=== PATIENT | male | born 2000 | race Caucasian/White ===

== ENCOUNTER 2021-05-01 14:19 | Inpatient (IN) | payer BC ==
[2021-05-01] MEDS ORDERED: Acetaminophen 325 MG Tab PO PRN (14:51)
[2021-05-01] MEDS ORDERED: Ondansetron 4 MG/2 ML SDV IVPUSH PRN (14:51)
--- NOTE | 2021-05-01 14:59 | PCM.SN.2 ---
- Free Text/Narrative Note: ABG results from [place]: pH 7.43, CO2 40, PO2 76 Time Documentation
[2021-05-01] MEDS ORDERED: Dexamethasone 4 MG Tab PO SCH (15:00)
[2021-05-01] MEDS ORDERED: Pantoprazole 40 MG Vial IV SCH (15:00)
[2021-05-01] MEDS ORDERED: Enoxaparin 40 MG/0.4 ML Syringe SUBCUT SCH (15:00)
[2021-05-01] MEDS ORDERED: Pantoprazole 40 MG in Sodium Chloride 0.9% 10 ML IV SCH (15:15)
[2021-05-01] MEDS: Albuterol/Ipratropium 4 GM Inhalation Spray INH SCH ×3 (17:19→23:37)
--- NOTE | 2021-05-01 17:39 | PCM.HP.2 ---
<AurelioFransiscolesley - Last Filed: 05/01/21 19:11> H&P History of Present Illness - General Date of Service: 05/01/21 Admit Problem/Dx: Admission Diagnosis/Problem Admission Diagnosis/Problem Hypoxia - History of Present Illness Initial Comments - Free Text/Narative: 21-year-old was a direct transfer from [facility] to the ICU for worsening Covid pneumonia. Patient was diagnosed with Covid 2 weeks ago in [place]. Patient was continued to experience fatigue, increased shortness of breath was parents drove him to [place] where he was seen in the ER and CT of his chest was done which showed: Pneumonia but no pulmonary embolism, as per patient. Patient returned to [place] and experienced increasing shortness of breath. 911 was called and he was taking to [facility]. Patient received his first dose of remdesivir. Patient refused outpatient antibody therapy. Patient transferred to [facility] ICU. Patient has experienced fever, chills, diarrhea but denies changes in taste or smell. Patient denies calf pain. Patient has had a cough but no mucus production. Patient is not vaccinated for Covid. Patient is on high flow nasal cannula, 60 L/min, FiO2 87%. Saturating at 93%. As per [place] medical record, WBC 9.74. Hgb 13.9. Platelet 159. D-dimer 14.8. Sodium 137. Potassium 3.9. Chloride 102. Bicarb 26. BUN 15. Creatinine 0.8. Glucose 109. Calcium 8.4. Phosphorus 4.6. Magnesium 2.4. AST 58. ALT 67. Alk phos 60. Troponin negative. C-reactive protein 18. SARS-CoV-2 positive. ABG pH 7.43. PCO2 40. PO2 76. HCO3 26. CT angiography done yesterday was negative. Past medical history: Patient denies past medical history. Medications: Patient states he is currently not on any medications. 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 Social history: Patient denies smoking. CODE STATUS: Full code. - Related Data Allergies/Adverse Reactions: Allergies Allergy/AdvReac Type Severity Reaction Status Date / Time cashew nut Allergy Airway Verified 04/25/21 03:55 MDT Tightness Home Medications: Home Meds . [No Known Home Meds] 05/01/21 [History] Past Medical History - Past Health History Medical/Surgical History: Denies Medical/Surgical History HEENT History: Reports: Impaired Vision Other HEENT History: glasses Cardiovascular History: Reports: None Respiratory History: Reports: None Gastrointestinal History: Reports: None Genitourinary History: Reports: None Other Musculoskeletal History: right leg shorter than left since Neurological History: Reports: None Psychiatric History: Reports: None Endocrine/Metabolic History: Reports: None Hematologic History: Reports: None Immunologic History: Reports: None Oncologic (Cancer) History: Reports: None Dermatologic History: Reports: None - Infectious Disease History Infectious Disease History: Reports: Novel Coronavirus - Past Surgical History Head Surgeries/Procedures: Reports: None Respiratory Surgical History: Reports: None GI Surgical History: Reports: None Social & Family History - Caffeine Use Caffeine Use: Reports: Soda Caffeine Use Comment: 2 per day soda H&P Review of Systems - Review of Systems: Review Of Systems: See Below General: Reports: Fever. Denies: Chills HEENT: Denies: Headaches Pulmonary: Reports: Shortness of Breath, Cough. Denies: Pleuritic Chest Pain, Sputum Cardiovascular: Reports: Dyspnea on Exertion. Denies: Chest Pain, Palpitations, Edema Gastrointestinal: Reports: Diarrhea, Decreased Appetite. Denies: Abdominal Pain, Bloody Stool, Constipation, Hematochezia, Melena Genitourinary: Denies: Dysuria Musculoskeletal: Denies: Leg Pain, Joint Pain Skin: Denies: Cyanosis, Rash Psychiatric: Denies: Confusion, Depression Neurological: Denies: Dizziness, Headache, Numbness, Paresthesia Hematologic/Lymphatic: Denies: Easy Bleeding, Easy Bruising Exam - Exam Exam: See Below - Exam Quality Assessment: Supplemental Oxygen General: Alert, Oriented, Cooperative, Moderate Distress. No: Lethargic HEENT: Conjunctiva Clear, EACs Clear, EOMI Neck: Supple, Trachea Midline Lungs: Decreased Breath Sounds, Crackles. No: Wheezing Cardiovascular: Regular Rate, Regular Rhythm GI/Abdominal Exam: Normal Bowel Sounds, Soft, Non-Tender Back Exam: Normal Inspection. No: CVA Tenderness (L), CVA Tenderness (R) Extremities: Normal Inspection. No: No Pedal Edema, Val's Sign, Leg Pain Peripheral Pulses: 2+: Dorsalis Pedis (L), Dorsalis Pedis (R) Skin: Warm, Dry, Intact Neurological: Cranial Nerves Intact Neuro Extensive - Mental Status: Alert, Oriented x3, Normal Mood/Affect - Problem List (1) COVID SNOMED Code(s): 413425512 ICD Code: U07.1 - COVID-19 Status: Acute Current Visit: No (2) Pneumonia due to COVID-19 virus SNOMED Code(s): 861336263487521554 ICD Code: U07.1 - COVID-19; J12.82 - PNEUMONIA DUE TO CORONAVIRUS DISEASE 2019 Status: Acute Current Visit: No Problem List Initiated/Reviewed/Updated: Yes Orders Last 24hrs: Active Orders 24 hr Category Date Time Status Patient Status [ADT] Routine ADT 05/01/21 14:51 Active Ambulate [RC] ASDIRECTED Care 05/01/21 14:51 Active Antiembolic Devices [RC] PER UNIT ROUTINE Care 05/01/21 14:54 Active Oxygen Therapy [RC] PRN Care 05/01/21 14:51 Active RT Aerosol Therapy [RC] ASDIRECTED Care 05/01/21 14:54 Active RT Post Treatment Assessment [RC] Click to Edit Care 05/01/21 14:57 Active RT Pre-Treatment Assessment [RC] Click to Edit Care 05/01/21 14:57 Active VTE/DVT Education [RC] PER UNIT ROUTINE Care 05/01/21 14:51 Active Vital Signs [RC] Q4H Care 05/01/21 14:51 Active Regular Diet [DIET] Diet 05/01/21 Dinner Active CBC WITH AUTO DIFF [HEME] Routine Lab 05/01/21 16:00 Ordered COMPREHENSIVE METABOLIC PN,CMP [CHEM] Routine Lab 05/01/21 16:00 Ordered CRP [C-REACTIVE PROTEIN] [CHEM] Routine Lab 05/01/21 16:00 Ordered MAGNESIUM [CHEM] Routine Lab 05/01/21 16:00 Ordered PHOSPHORUS [CHEM] Routine Lab 05/01/21 16:00 Ordered Acetaminophen [TylenoL] Med 05/01/21 14:51 Active 650 mg PO Q4H PRN Albuterol/Ipratropium [Combivent Respimat] Med 05/01/21 15:00 Active See Dose Instructions INH Q4H Albuterol/Ipratropium [DuoNeb 3.0-0.5 MG/3 ML] Med 05/01/21 14:51 Active 3 ml NEB Q4HRRT PRN Enoxaparin [Lovenox] Med 05/01/21 15:00 Active 40 mg SUBCUT Q24H Ondansetron [Zofran] Med 05/01/21 14:51 Active 4 mg IVPUSH Q4H PRN Pantoprazole [ProTONIX IV] 40 mg Med 05/01/21 15:15 Active Sodium Chloride 0.9% [Normal Saline] 10 ml IV DAILY Remdesivir 100 mg Med 05/01/21 15:00 Ordered Sodium Chloride 0.9% [Normal Saline] 100 ml IV Q24H dexAMETHasone Med 05/01/21 15:00 Active 6 mg PO DAILY RT Oxygen High Humidity High Flow [RESPCARE] Routine Oth 05/01/21 14:57 Active Sequential Compression Device [OM.PC] Per Unit Routine Oth 05/01/21 14:53 Ordered Resuscitation Status Routine Resus Stat 05/01/21 14:51 Ordered Medication Orders Acetaminophen (Acetaminophen 325 Mg Tab) 650 mg PO Q4H PRN PRN Reason: Pain (Mild 1-3)/fever Albuterol/Ipratropium (Albuterol/Ipratropium 3.0-0.5 Mg/3 Ml Neb Soln) 3 ml NEB Q4HRRT PRN PRN Reason: Shortness Of Breath/wheezing Albuterol/Ipratropium (Albuterol/Ipratropium 4 Gm Inhalation [place]) 0 gm INH Q4H RAHEL Last Admin: 05/01/21 17:19 Dose: Not Given Documented by: LIEN Dexamethasone (Dexamethasone 4 Mg Tab) 6 mg PO DAILY [facility] Enoxaparin Sodium (Enoxaparin 40 Mg/0.4 Ml Syringe) 40 mg SUBCUT Q24H [facility] Remdesivir 100 mg/ Sodium (Chloride) 100 mls @ 100 mls/hr IV Q24H RAHEL Stop: 05/04/21 15:59 Pantoprazole Sodium 40 mg/ (Sodium Chloride) 10 mls @ 300 mls/hr IV DAILY [facility] Ondansetron HCl (Ondansetron 4 Mg/2 Ml Sdv) 4 mg IVPUSH Q4H PRN PRN Reason: Nausea/Vomiting Assessment/Plan Comment:: COVID-19 pneumonia: Acetaminophen 650 mg. Duo nebs. Combivent. Dexamethasone 6 mg daily. Zofran 4 mg. Pantoprazole 40 mg. Remdesivir. Oxygen therapy. Patient has been on heparin drip for 2 hours. Discontinue heparin drip. We wi ll anticoagulate patient with Lovenox starting 3 hours after drip was discontinued. 0.5 mg/kg twice daily. <Pritesh Hyatt - Last Filed: 05/01/21 23:20> H&P History of Present Illness - General Admit Problem/Dx: Admission Diagnosis/Problem Admission Diagnosis/Problem Hypoxia Exam - Vital Signs Vital Signs: Last Vital Signs Temp 36.5 C 05/01/21 19:00 Pulse Resp 26 H 05/01/21 22:00 BP 123/56 L 05/01/21 21:00 Pulse Ox 91 L 05/01/21 22:00 Sepsis Event Note - Focused Exam Vital Signs: Vital Signs Temp Resp BP Pulse Ox 05/01/21 22:00 26 H 91 L 05/01/21 21:00 28 H 123/56 L 90 L 05/01/21 20:00 29 H 118/57 L 91 L 05/01/21 19:00 36.5 C 20 114/57 L 93 L Orders Last 24hrs: Active Orders 24 hr Category Date Time Status Patient Status [ADT] Routine ADT 05/01/21 14:51 Active Ambulate [RC] ASDIRECTED Care 05/01/21 14:51 Active Antiembolic Devices [RC] PER UNIT ROUTINE Care 05/01/21 14:54 Active Oxygen Therapy [RC] PRN Care 05/01/21 14:51 Active RT Aerosol Therapy [RC] ASDIRECTED Care 05/01/21 14:54 Active RT Post Treatment Assessment [RC] Click to Edit Care 05/01/21 14:57 Active RT Pre-Treatment Assessment [RC] Click to Edit Care 05/01/21 14:57 Active VTE/DVT Education [RC] PER UNIT ROUTINE Care 05/01/21 14:51 Active Vital Signs [RC] Q1H Care 05/01/21 14:51 Active Regular Diet [DIET] Diet 05/01/21 Dinner Active CBC WITH AUTO DIFF [HEME] DAILY Lab 05/02/21 05:11 Ordered CBC WITH AUTO DIFF [HEME] DAILY Lab 05/03/21 05:11 Ordered CBC WITH AUTO DIFF [HEME] DAILY Lab 05/04/21 05:11 Ordered CBC WITH AUTO DIFF [HEME] DAILY Lab 05/05/21 05:11 Ordered CBC WITH AUTO DIFF [HEME] DAILY Lab 05/06/21 05:11 Ordered CBC WITH AUTO DIFF [HEME] DAILY Lab 05/07/21 05:11 Ordered CBC WITH AUTO DIFF [HEME] DAILY Lab 05/08/21 05:11 Ordered CBC WITH AUTO DIFF [HEME] DAILY Lab 05/09/21 05:11 Ordered CBC WITH AUTO DIFF [HEME] DAILY Lab 05/10/21 05:11 Ordered CBC WITH AUTO DIFF [HEME] DAILY Lab 05/11/21 05:11 Ordered COMPREHENSIVE METABOLIC PN,CMP [CHEM] DAILY Lab 05/02/21 05:11 Ordered COMPREHENSIVE METABOLIC PN,CMP [CHEM] DAILY Lab 05/03/21 05:11 Ordered COMPREHENSIVE METABOLIC PN,CMP [CHEM] DAILY Lab 05/04/21 05:11 Ordered COMPREHENSIVE METABOLIC PN,CMP [CHEM] DAILY Lab 05/05/21 05:11 Ordered COMPREHENSIVE METABOLIC PN,CMP [CHEM] DAILY Lab 05/06/21 05:11 Ordered COMPREHENSIVE METABOLIC PN,CMP [CHEM] DAILY Lab 05/07/21 05:11 Ordered COMPREHENSIVE METABOLIC PN,CMP [CHEM] DAILY Lab 05/08/21 05:11 Ordered COMPREHENSIVE METABOLIC PN,CMP [CHEM] DAILY Lab 05/09/21 05:11 Ordered COMPREHENSIVE METABOLIC PN,CMP [CHEM] DAILY Lab 05/10/21 05:11 Ordered COMPREHENSIVE METABOLIC PN,CMP [CHEM] DAILY Lab 05/11/21 05:11 Ordered PROCALCITONIN [REF] Routine Lab 05/02/21 05:15 Ordered Acetaminophen [TylenoL] Med 05/01/21 14:51 Active 650 mg PO Q4H PRN Albuterol/Ipratropium [Combivent Respimat] Med 05/01/21 15:00 Active See Dose Instructions INH Q4H Albuterol/Ipratropium [DuoNeb 3.0-0.5 MG/3 ML] Med 05/01/21 14:51 Active 3 ml NEB Q4HRRT PRN Enoxaparin [Lovenox] Med 05/01/21 22:00 Active 70 mg SUBCUT Q12H Ondansetron [Zofran] Med 05/01/21 14:51 Active 4 mg IVPUSH Q4H PRN Pantoprazole [ProTONIX IV] 40 mg Med 05/01/21 15:15 Active Sodium Chloride 0.9% [Normal Saline] 10 ml IV DAILY Remdesivir 100 mg Med 05/02/21 09:00 Active Sodium Chloride 0.9% [Normal Saline] 100 ml IV Q24H dexAMETHasone Med 05/02/21 09:00 Active 6 mg PO DAILY RT Oxygen High Humidity High Flow [RESPCARE] Routine Oth 05/01/21 14:57 Active Sequential Compression Device [OM.PC] Per Unit Routine Oth 05/01/21 14:53 Ordered Resuscitation Status Routine Resus Stat 05/01/21 14:51 Ordered Medication Orders Acetaminophen (Acetaminophen 325 Mg Tab) 650 mg PO Q4H PRN PRN Reason: Pain (Mild 1-3)/fever Albuterol/Ipratropium (Albuterol/Ipratropium 3.0-0.5 Mg/3 Ml Neb Soln) 3 ml NEB Q4HRRT PRN PRN Reason: Shortness Of Breath/wheezing Albuterol/Ipratropium (Albuterol/Ipratropium 4 Gm Inhalation [place]) 0 gm INH Q4H [facility] Last Admin: 05/01/21 19:52 Dose: 1 puff Documented by: Admin: 05/01/21 17:19 Dose: Not Given Documented by: LIEN Dexamethasone (Dexamethasone 4 Mg Tab) 6 mg PO DAILY [facility] Enoxaparin Sodium (Enoxaparin 100 Mg/1 Ml Syringe) 70 mg SUBCUT Q12H [facility] Last Admin: 05/01/21 22:17 Dose: 70 mg Documented by: AJAY Remdesivir 100 mg/ Sodium (Chloride) 100 mls @ 100 mls/hr IV Q24H [facility] Stop: 05/04/21 09:59 Pantoprazole Sodium 40 mg/ (Sodium Chloride) 10 mls @ 300 mls/hr IV DAILY [facility] Last Admin: 05/01/21 19:54 Dose: Not Given Documented by: AJAY Ondansetron HCl (Ondansetron 4 Mg/2 Ml Sdv) 4 mg IVPUSH Q4H PRN PRN Reason: Nausea/Vomiting Assessment/Plan Comment:: I performed a history and physical exam of the patient and discussed management with resident. I have reviewed the residents note and agree with documented findings and plan unless otherwise specified in my note.
[2021-05-01] MEDS ORDERED: Tocilizumab 800 MG in Sodium Chloride 0.9% 100 ML IV ONE (19:31)
[2021-05-01] MEDS: Pantoprazole 40 MG in Sodium Chloride 0.9% 10 ML IV SCH (19:54)
--- NOTE | 2021-05-01 20:14 | PN ---
[facility] Physician - Brief Progress [id number]/19/2021 19:53[place] - CHANDRA (OLEGARIO) - DESTINN JACQUES KNAPP, COVID+Date of Service 05/01/2021 19:53HPI /Events of Note HPI: 21 yo obese M with no known PMHx was sent to [facility] ICU from hospital in [place], [place] for worsening hypoxia secondary to COVID19 pneumonia. Pt was diagnosed with COVID19 2 w eeks ago. He has since experienced progressively worsening fatigue and dyspnea. He has had associated fever, chills, diarrhea, and dry cough. He recently went to ER in [place] and had a CT chest that w as negative for PE. Today, dyspnea was severe enough that EMS was called and pt was taken to ER [place]. He has declined monoclonal antibody. Remdesivir has been started. He is now requiring heated high flow NC with flow 60 L/min and FiO2 87%. SpO2 is 93% on these settings.OBJECTIVE:Vitals not maribell rted in EMR. Reviewed vitals on library monitor.Gen: Pleasant, comfortable, cooperative, NAD, obese Heart: NSR with normal HR on telemetryLungs: Mild tachypnea at rest on heated high flow with spo2 93% Neuro: Awake, alert, moves all 4 limbs spontaneously, NADASSESSMENT:Acute hypoxic respiratory failure Multifocal pneumonia d/t [id number] via heated HFNC, wean as toleratedMaintain spo2 >90% and p o2 >60 mmHgDroplet isolation per protocolDexamethasoneRemdesivirPt refused monoclonal antibodies F/U chest imaging and ABG at discretion of bedside teamInterventions Major-Hypoxemia - evaluation and man agement, Infection - evaluation and management, Respiratory failure - evaluation and managementElectr onically Signed by: Jitendra Plunkett) on 05/01/2021 20:13
[2021-05-01] MEDS: Enoxaparin 100 MG/1 ML Syringe SUBCUT SCH (22:17)
[2021-05-02] MEDS: Albuterol/Ipratropium 4 GM Inhalation Spray INH SCH ×6 (02:35→22:05)
[2021-05-02 07:20] LABS: BLOOD UREA NITROGEN,BUN 13 mg/dL (7.0-18.0); CARBON DIOXIDE,CO2 26.3 mmol/L (21.0-32.0); CHLORIDE,CL 103 mmol/L (98-107); GLUCOSE RANDOM 97 mg/dL (74-106); POTASSIUM,K 4.8 mmol/L (3.5-5.1); SODIUM,NA 141 mmol/L (136-148)
--- NOTE | 2021-05-02 08:03 | PCM.PN ---
<Lemuel Carey - Last Filed: 05/02/21 11:08> - General Info Date of Service: 05/02/21 Admission Dx/Problem (Free Text): Admission Diagnosis/Problem Admission Diagnosis/Problem Hypoxia Subjective Update: 21-year-old obese male transferred from [place], admitted to ICU for worsening Covid pneumonia. After consent was obtained, patient received Actemra last night. Patient continues to have watery diarrhea overnight. This morning he states he feels the best he has in 2 days. Patient is now down to 50 L from 60 L, which was weaned down at 5 AM. Patient is saturating 90 to 94%. Patient states he slept well last night. Patient is hungry and would like breakfast. Patient denies fever, chills, chest pain, palpitations, dizziness, abdominal pain or dysuria. - Review of Systems General: Reports: Fatigue. Denies: Fever, Chills HEENT: Denies: Headaches Pulmonary: Reports: Shortness of Breath. Denies: Pleuritic Chest Pain, Cough, Sputum Cardiovascular: Denies: Chest Pain, Palpitations Gastrointestinal: Reports: Diarrhea. Denies: Abdominal Pain, Constipation Genitourinary: Denies: Dysuria Musculoskeletal: Denies: Leg Pain Skin: Denies: Rash Neurological: Denies: Confusion, Dizziness, Numbness, Paresthesia - Patient Data Vitals - Most Recent: Last Vital Signs Temp 98.9 F 05/02/21 05:00 Pulse Resp 12 05/02/21 07:00 BP 121/64 05/02/21 07:00 Pulse Ox 95 05/02/21 07:00 Weight - Most Recent: 119.068 kg I&O - Last 24 Hours: Intake & Output 05/01/21 05/02/21 05/02/21 22:59 06:59 14:59 Intake Total 1000 Balance 1000 Lab Results Last 24 Hours: Laboratory Results - last 24 hr 05/02/21 Range/Units 06:01 Sodium 141 (136-148) mmol/L Potassium 4.8 (3.5-5.1) mmol/L Chloride 103 (98-107) mmol/L Carbon Dioxide 26.3 (21.0-32.0) mmol/L BUN 13 (7.0-18.0) mg/dL Creatinine 0.6 L (0.8-1.3) mg/dL Est Cr Clr Drug Dosing 179.02 mL/min Estimated GFR (MDRD) > 60.0 ml/min Glucose 97 (74-106) mg/dL Calcium 8.1 L (8.5-10.1) mg/dL Total Bilirubin 0.5 (0.2-1.0) mg/dL AST 61 H (15-37) IU/L ALT 56 (14-63) IU/L Alkaline Phosphatase 65 (46-116) U/L Total Protein 6.9 (6.4-8.2) g/dL Albumin 2.3 L (3.4-5.0) g/dL Globulin 4.6 H (2.6-4.0) g/dL Albumin/Globulin Ratio 0.5 L (0.9-1.6) Med Orders - Current: Current Medications Acetaminophen (Acetaminophen 325 Mg Tab) 650 mg PO Q4H PRN PRN Reason: Pain (Mild 1-3)/fever Albuterol/Ipratropium (Albuterol/Ipratropium 3.0-0.5 Mg/3 Ml Neb Soln) 3 ml NEB Q4HRRT PRN PRN Reason: Shortness Of Breath/wheezing Albuterol/Ipratropium (Albuterol/Ipratropium 4 Gm Inhalation [place]) 0 gm INH Q4H [facility] Last Admin: 05/02/21 06:03 Dose: 1 puff Documented by: Dexamethasone (Dexamethasone 4 Mg Tab) 6 mg PO DAILY [facility] Enoxaparin Sodium (Enoxaparin 100 Mg/1 Ml Syringe) 70 mg SUBCUT Q12H [facility] Last Admin: 05/01/21 22:17 Dose: 70 mg Documented by: Remdesivir 100 mg/ Sodium (Chloride) 100 mls @ 100 mls/hr IV Q24H [facility] Stop: 05/04/21 09:59 Pantoprazole Sodium 40 mg/ (Sodium Chloride) 10 mls @ 300 mls/hr IV DAILY [facility] Last Admin: 05/01/21 19:54 Dose: Not Given Documented by: Ondansetron HCl (Ondansetron 4 Mg/2 Ml Sdv) 4 mg IVPUSH Q4H PRN PRN Reason: Nausea/Vomiting Discontinued Medications Dexamethasone (Dexamethasone 4 Mg Tab) 6 mg PO DAILY [facility] Last Admin: 05/01/21 18:23 Dose: Not Given Documented by: Enoxaparin Sodium (Enoxaparin 40 Mg/0.4 Ml Syringe) 40 mg SUBCUT Q24H [facility] Last Admin: 05/01/21 18:29 Dose: Not Given Documented by: Pantoprazole Sodium 40 mg/ (Sodium Chloride) 10 mls @ 300 mls/hr IV Q24H [facility] Tocilizumab 800 mg/ Sodium (Chloride) 140 mls @ 140 mls/hr IV ONETIME ONE Stop: 05/01/21 19:32 Last Admin: 05/01/21 20:19 Dose: 140 mls/hr Documented by: - Exam Quality Assessment: Supplemental Oxygen General: Alert, Oriented, Cooperative, No Acute Distress HEENT: Pupils Equal, Pupils Reactive Neck: Supple, Trachea Midline Lungs: Decreased Breath Sounds, Crackles Cardiovascular: Regular Rate, Regular Rhythm, No Murmurs GI/Abdominal Exam: Normal Bowel Sounds, Soft, Non-Tender. No: Rebound Back Exam: Normal Inspection. No: CVA Tenderness (L), CVA Tenderness (R) Extremities: Normal Inspection, Normal Range of Motion, Non-Tender, No Pedal Edema. No: Val's Sign, Leg Pain Peripheral Pulses: 2+: Dorsalis Pedis (L), Dorsalis Pedis (R) Skin: Warm, Dry, Intact Neurological: No New Focal Deficit - Patient Data Lab Results Last 24 hrs: Laboratory Results - last 24 hr 05/02/21 Range/Units 06:01 Sodium 141 (136-148) mmol/L Potassium 4.8 (3.5-5.1) mmol/L Chloride 103 (98-107) mmol/L Carbon Dioxide 26.3 (21.0-32.0) mmol/L BUN 13 (7.0-18.0) mg/dL Creatinine 0.6 L (0.8-1.3) mg/dL Est Cr Clr Drug Dosing 179.02 mL/min Estimated GFR (MDRD) > 60.0 ml/min Glucose 97 (74-106) mg/dL Calcium 8.1 L (8.5-10.1) mg/dL Total Bilirubin 0.5 (0.2-1.0) mg/dL AST 61 H (15-37) IU/L ALT 56 (14-63) IU/L Alkaline Phosphatase 65 (46-116) U/L Total Protein 6.9 (6.4-8.2) g/dL Albumin 2.3 L (3.4-5.0) g/dL Globulin 4.6 H (2.6-4.0) g/dL Albumin/Globulin Ratio 0.5 L (0.9-1.6) Result Diagrams: 05/02/21 06:01 05/02/21 06:01 Sepsis Event Note - Evaluation Sepsis Screening Result: No Definite Risk - Focused Exam Vital Signs: Vital Signs Temp Resp BP Pulse Ox 05/02/21 07:00 12 121/64 95 05/02/21 06:00 15 135/71 92 L 05/02/21 05:00 98.9 F 34 H 140/78 93 L 05/02/21 04:00 18 125/66 96 05/02/21 03:00 31 H 119/59 L 96 05/02/21 02:00 41 H 125/49 L 95 05/02/21 01:00 29 H 125/40 L 95 05/02/21 00:00 99.1 F 29 H 136/70 93 L 05/01/21 23:00 35 H 111/54 L 93 L 05/01/21 22:00 26 H 109/46 L 91 L 05/01/21 21:00 28 H 123/56 L 90 L 05/01/21 20:00 29 H 118/57 L 91 L - Problem List & Annotations (1) COVID SNOMED Code(s): 475959252 Code(s): U07.1 - COVID-19 Status: Acute Current Visit: No (2) Pneumonia due to COVID-19 virus SNOMED Code(s): 847262714580465744 Code(s): U07.1 - COVID-19; J12.82 - PNEUMONIA DUE TO CORONAVIRUS DISEASE 2019 Status: Acute Current Visit: No - Problem List Review Problem List Initiated/Reviewed/Updated: Yes - My Orders Last 24 Hours: My Active Orders 05/01/21 22:00 Enoxaparin [Lovenox] 70 mg SUBCUT Q12H 05/02/21 06:01 CBC WITH AUTO DIFF [HEME] DAILY 05/03/21 05:11 CBC WITH AUTO DIFF [HEME] DAILY COMPREHENSIVE METABOLIC PN,CMP [CHEM] DAILY 05/04/21 05:11 CBC WITH AUTO DIFF [HEME] DAILY COMPREHENSIVE METABOLIC PN,CMP [CHEM] DAILY 05/05/21 05:11 CBC WITH AUTO DIFF [HEME] DAILY COMPREHENSIVE METABOLIC PN,CMP [CHEM] DAILY 05/06/21 05:11 CBC WITH AUTO DIFF [HEME] DAILY COMPREHENSIVE METABOLIC PN,CMP [CHEM] DAILY 05/07/21 05:11 CBC WITH AUTO DIFF [HEME] DAILY COMPREHENSIVE METABOLIC PN,CMP [CHEM] DAILY 05/08/21 05:11 CBC WITH AUTO DIFF [HEME] DAILY COMPREHENSIVE METABOLIC PN,CMP [CHEM] DAILY 05/09/21 05:11 CBC WITH AUTO DIFF [HEME] DAILY COMPREHENSIVE METABOLIC PN,CMP [CHEM] DAILY 05/10/21 05:11 CBC WITH AUTO DIFF [HEME] DAILY COMPREHENSIVE METABOLIC PN,CMP [CHEM] DAILY 05/11/21 05:11 CBC WITH AUTO DIFF [HEME] DAILY COMPREHENSIVE METABOLIC PN,CMP [CHEM] DAILY - Plan Plan:: Covid pneumonia: -After obtaining consent, Actemra was administered last night. Patient tolerated well. -Follow-up on procalcitonin level. -Oxygen supplementation. Wean as tolerated. -Remdesivir. -Lovenox anticoagulation 70mg bid. -Dexamethasone. -Duo nebs. Combivent. -Acetaminophen. Dextromethorphan/guaifenesin. Zofran. Pantoprazole. -Monitor telemetry. -Counseled patient on importance of prone positioning. Incentive spirometry. -Spoke with patients parents to update them. <Pritesh Hyatt - Last Filed: 05/02/21 14:26> - Patient Data Vitals - Most Recent: Last Vital Signs Temp 36.3 C 05/02/21 12:00 Pulse Resp 25 H 05/02/21 13:00 BP 138/55 L 05/02/21 13:00 Pulse Ox 92 L 05/02/21 13:00 I&O - Last 24 Hours: Intake & Output 05/01/21 05/02/21 05/02/21 22:59 06:59 14:59 Intake Total 1000 Balance 1000 Lab Results Last 24 Hours: Laboratory Results - last 24 hr 05/02/21 05/02/21 Range/Units 06:01 06:01 WBC 10.83 (4.0-11.0) K/uL RBC 4.83 (4.50-5.90) M/uL Hgb 13.5 (13.0-17.0) g/dL Hct 40.0 (38.0-50.0) % MCV 82.8 (80.0-98.0) fL MCH 28.0 (27.0-32.0) pg MCHC 33.8 (31.0-37.0) g/dL RDW Std Deviation 40.8 (28.0-62.0) fl RDW Coeff of [place] 14 (11.0-15.0) % Plt Count 133 L (150-400) K/uL MPV 11.00 (7.40-12.00) fL Add Manual Diff YES Neutrophils % (Manual) 76 (48.0-80.0) % Band Neutrophils % 4 % Lymphocytes % (Manual) 16 (16.0-40.0) % Monocytes % (Manual) 3 (0.0-15.0) % Myelocytes % 1 % Nucleated RBC % 0.0 /100WBC Absolute Seg Neuts 8.2 H (1.4-5.7) Band Neutrophils # 0.4 Lymphocytes # (Manual) 1.7 (0.6-2.4) Monocytes # (Manual) 0.3 (0.0-0.8) Absolute Myelocytes 0.1 Nucleated RBCs # 0 K/uL Sodium 141 (136-148) mmol/L Potassium 4.8 (3.5-5.1) mmol/L Chloride 103 (98-107) mmol/L Carbon Dioxide 26.3 (21.0-32.0) mmol/L BUN 13 (7.0-18.0) mg/dL Creatinine 0.6 L (0.8-1.3) mg/dL Est Cr Clr Drug Dosing 179.02 mL/min Estimated GFR (MDRD) > 60.0 ml/min Glucose 97 (74-106) mg/dL Calcium 8.1 L (8.5-10.1) mg/dL Total Bilirubin 0.5 (0.2-1.0) mg/dL AST 61 H (15-37) IU/L ALT 56 (14-63) IU/L Alkaline Phosphatase 65 (46-116) U/L Total Protein 6.9 (6.4-8.2) g/dL Albumin 2.3 L (3.4-5.0) g/dL Globulin 4.6 H (2.6-4.0) g/dL Albumin/Globulin Ratio 0.5 L (0.9-1.6) Med Orders - Current: Current Medications Acetaminophen (Acetaminophen 325 Mg Tab) 650 mg PO Q4H PRN PRN Reason: Pain (Mild 1-3)/fever Albuterol/Ipratropium (Albuterol/Ipratropium 3.0-0.5 Mg/3 Ml Neb Soln) 3 ml NEB Q4HRRT PRN PRN Reason: Shortness Of Breath/wheezing Albuterol/Ipratropium (Albuterol/Ipratropium 4 Gm Inhalation [place]) 0 gm INH Q4H [facility] Last Admin: 05/02/21 10:38 Dose: 1 puff Documented by: Dexamethasone (Dexamethasone 4 Mg Tab) 6 mg PO DAILY [facility] Last Admin: 05/02/21 09:00 Dose: 6 mg Documented by: Enoxaparin Sodium (Enoxaparin 100 Mg/1 Ml Syringe) 70 mg SUBCUT Q12H [facility] Last Admin: 05/02/21 09:01 Dose: 100 mg Documented by: Remdesivir 100 mg/ Sodium (Chloride) 100 mls @ 100 mls/hr IV Q24H [facility] Stop: 05/04/21 09:59 Last Admin: 05/02/21 09:39 Dose: 100 mls/hr Documented by: Pantoprazole Sodium 40 mg/ (Sodium Chloride) 10 mls @ 300 mls/hr IV DAILY [facility] Last Admin: 05/02/21 09:00 Dose: 300 mls/hr Documented by: Ondansetron HCl (Ondansetron 4 Mg/2 Ml Sdv) 4 mg IVPUSH Q4H PRN PRN Reason: Nausea/Vomiting Discontinued Medications Dexamethasone (Dexamethasone 4 Mg Tab) 6 mg PO DAILY [facility] Last Admin: 05/01/21 18:23 Dose: Not Given Documented by: Enoxaparin Sodium (Enoxaparin 40 Mg/0.4 Ml Syringe) 40 mg SUBCUT Q24H [facility] Last Admin: 05/01/21 18:29 Dose: Not Given Documented by: Pantoprazole Sodium 40 mg/ (Sodium Chloride) 10 mls @ 300 mls/hr IV Q24H [facility] Tocilizumab 800 mg/ Sodium (Chloride) 140 mls @ 140 mls/hr IV ONETIME ONE Stop: 05/01/21 19:32 Last Admin: 05/01/21 20:19 Dose: 140 mls/hr Documented by: - Patient Data Lab Results Last 24 hrs: Laboratory Results - last 24 hr 05/02/21 05/02/21 Range/Units 06:01 06:01 WBC 10.83 (4.0-11.0) K/uL RBC 4.83 (4.50-5.90) M/uL Hgb 13.5 (13.0-17.0) g/dL Hct 40.0 (38.0-50.0) % MCV 82.8 (80.0-98.0) fL MCH 28.0 (27.0-32.0) pg MCHC 33.8 (31.0-37.0) g/dL RDW Std Deviation 40.8 (28.0-62.0) fl RDW Coeff of [place] 14 (11.0-15.0) % Plt Count 133 L (150-400) K/uL MPV 11.00 (7.40-12.00) fL Add Manual Diff YES Neutrophils % (Manual) 76 (48.0-80.0) % Band Neutrophils % 4 % Lymphocytes % (Manual) 16 (16.0-40.0) % Monocytes % (Manual) 3 (0.0-15.0) % Myelocytes % 1 % Nucleated RBC % 0.0 /100WBC Absolute Seg Neuts 8.2 H (1.4-5.7) Band Neutrophils # 0.4 Lymphocytes # (Manual) 1.7 (0.6-2.4) Monocytes # (Manual) 0.3 (0.0-0.8) Absolute Myelocytes 0.1 Nucleated RBCs # 0 K/uL Sodium 141 (136-148) mmol/L Potassium 4.8 (3.5-5.1) mmol/L Chloride 103 (98-107) mmol/L Carbon Dioxide 26.3 (21.0-32.0) mmol/L BUN 13 (7.0-18.0) mg/dL Creatinine 0.6 L (0.8-1.3) mg/dL Est Cr Clr Drug Dosing 179.02 mL/min Estimated GFR (MDRD) > 60.0 ml/min Glucose 97 (74-106) mg/dL Calcium 8.1 L (8.5-10.1) mg/dL Total Bilirubin 0.5 (0.2-1.0) mg/dL AST 61 H (15-37) IU/L ALT 56 (14-63) IU/L Alkaline Phosphatase 65 (46-116) U/L Total Protein 6.9 (6.4-8.2) g/dL Albumin 2.3 L (3.4-5.0) g/dL Globulin 4.6 H (2.6-4.0) g/dL Albumin/Globulin Ratio 0.5 L (0.9-1.6) Result Diagrams: 05/02/21 06:01 05/02/21 06:01 Sepsis Event Note - Focused Exam Vital Signs: Vital Signs Temp Resp BP Pulse Ox 05/02/21 13:00 25 H 138/55 L 92 L 05/02/21 12:00 36.3 C 21 H 126/62 92 L 05/02/21 11:00 40 H 128/61 95 05/02/21 10:00 34 H 118/54 L 88 L 05/02/21 09:30 86 L 05/02/21 09:15 29 H 108/57 L 88 L 05/02/21 08:00 36.2 C 25 H 119/55 L 82 L 05/02/21 07:00 12 121/64 95 05/02/21 06:00 15 135/71 92 L 05/02/21 05:00 37.2 C 34 H 140/78 93 L 05/02/21 04:00 18 125/66 96 05/02/21 03:00 31 H 119/59 L 96 - My Orders Last 24 Hours: My Active Orders 05/01/21 14:51 Patient Status [ADT] Routine Ambulate [RC] ASDIRECTED Oxygen Therapy [RC] PRN VTE/DVT Education [RC] PER UNIT ROUTINE Vital Signs [RC] Q1H Acetaminophen [TylenoL] 650 mg PO Q4H PRN Albuterol/Ipratropium [DuoNeb 3.0-0.5 MG/3 ML] 3 ml NEB Q4HRRT PRN Ondansetron [Zofran] 4 mg IVPUSH Q4H PRN Resuscitation Status Routine 05/01/21 14:53 Sequential Compression Device [OM.PC] Per Unit Routine 05/01/21 14:54 Antiembolic Devices [RC] PER UNIT ROUTINE RT Aerosol Therapy [RC] ASDIRECTED 05/01/21 14:57 RT Post Treatment Assessment [RC] Click to Edit RT Pre-Treatment Assessment [RC] Click to Edit RT Oxygen High Humidity High Flow [RESPCARE] Routine 05/01/21 15:00 Albuterol/Ipratropium [Combivent Respimat] See Dose Instructions INH Q4H 05/01/21 15:15 Pantoprazole [ProTONIX IV] 40 mg Sodium Chloride 0.9% [Normal Saline] 10 ml IV DAILY 05/01/21 Dinner Regular Diet [DIET] 05/02/21 06:01 PROCALCITONIN [REF] Routine 05/02/21 09:00 Remdesivir 100 mg Sodium Chloride 0.9% [Normal Saline] 100 ml IV Q24H dexAMETHasone 6 mg PO DAILY - Plan Plan:: I have seen and evaluated the patient and agree with the residents note unless specified in my note
[2021-05-02] MEDS: Dexamethasone 4 MG Tab PO SCH (09:00)
[2021-05-02] MEDS: Pantoprazole 40 MG in Sodium Chloride 0.9% 10 ML IV SCH (09:00)
[2021-05-02] MEDS: Enoxaparin 100 MG/1 ML Syringe SUBCUT SCH ×2 (09:01→21:07)
[2021-05-02] MEDS: REMDESIVIR 100 MG in Sodium Chloride 0.9% 100 ML IV SCH (09:39)
[2021-05-02] MEDS: Albuterol/Ipratropium 3.0-0.5 MG/3 ML Neb Soln NEB PRN (20:39)
[2021-05-03] MEDS: Albuterol/Ipratropium 4 GM Inhalation Spray INH SCH ×6 (02:21→22:06)
[2021-05-03 07:10] LABS: BLOOD UREA NITROGEN,BUN 12 mg/dL (7.0-18.0); CARBON DIOXIDE,CO2 25.1 mmol/L (21.0-32.0); CHLORIDE,CL 105 mmol/L (98-107); GLUCOSE RANDOM 114 mg/dL (74-106); POTASSIUM,K 4.2 mmol/L (3.5-5.1); SODIUM,NA 141 mmol/L (136-148)
[2021-05-03] MEDS: Pantoprazole 40 MG in Sodium Chloride 0.9% 10 ML IV SCH (08:58)
[2021-05-03] MEDS: Dexamethasone 4 MG Tab PO SCH (08:58)
[2021-05-03] MEDS: Enoxaparin 100 MG/1 ML Syringe SUBCUT SCH ×2 (09:00→21:00)
[2021-05-03] MEDS: REMDESIVIR 100 MG in Sodium Chloride 0.9% 100 ML IV SCH (09:57)
--- NOTE | 2021-05-03 12:11 | PCM.PN ---
- General Info Date of Service: 05/03/21 Admission Dx/Problem (Free Text): Admission Diagnosis/Problem Admission Diagnosis/Problem Hypoxia Subjective Update: 21-year-old obese male transferred from [place], admitted to ICU for worsening Covid pneumonia. Patient's diarrhea has improved but continues to have loose stools. Is currently on heated high flow at 45, FiO2 55. Patient's father visited him yesterday and provided a stuffed animal for comfort. Patient states he feels much better today. Patient has been following instructions for proning. He has a good appetite and has been tolerating diet. Patient denies fever, chills, chest pain, palpitations, dizziness, abdominal pain or dysuria. - Review of Systems General: Denies: Fever, Chills HEENT: Denies: Headaches, Sinus Congestion Pulmonary: Reports: Shortness of Breath, Cough Cardiovascular: Reports: Dyspnea on Exertion. Denies: Chest Pain, Palpitations Gastrointestinal: Reports: Diarrhea. Denies: Abdominal Pain, Constipation, Nausea, Vomiting Genitourinary: Denies: Dysuria Musculoskeletal: Denies: Leg Pain Skin: Denies: Rash Neurological: Denies: Confusion, Headache, Numbness, Paresthesia - Patient Data Vitals - Most Recent: Last Vital Signs Temp 98.2 F 05/03/21 08:00 Pulse Resp 26 H 05/03/21 11:00 BP 131/63 05/03/21 11:00 Pulse Ox 94 L 05/03/21 11:00 Weight - Most Recent: 260 lb I&O - Last 24 Hours: Intake & Output 05/02/21 05/03/21 05/03/21 22:59 06:59 14:59 Intake Total 2520 Output Total 1750 800 Balance -1750 1720 Lab Results Last 24 Hours: Laboratory Results - last 24 hr 05/02/21 05/03/21 05/03/21 Range/Units 06:01 06:18 06:18 WBC 11.50 H (4.0-11.0) K/uL RBC 4.84 (4.50-5.90) M/uL Hgb 13.4 (13.0-17.0) g/dL Hct 39.8 (38.0-50.0) % MCV 82.2 (80.0-98.0) fL MCH 27.7 (27.0-32.0) pg MCHC 33.7 (31.0-37.0) g/dL RDW Std Deviation 40.2 (28.0-62.0) fl RDW Coeff of Mir[place] 13 (11.0-15.0) % Plt Count 158 (150-400) K/uL MPV 10.80 (7.40-12.00) fL Add Manual Diff YES Neutrophils % (Manual) 81 H (48.0-80.0) % Band Neutrophils % 2 % Lymphocytes % (Manual) 17 (16.0-40.0) % Nucleated RBC % 0.0 /100WBC Absolute Seg Neuts 9.3 H (1.4-5.7) Band Neutrophils # 0.2 Lymphocytes # (Manual) 2.0 (0.6-2.4) Nucleated RBCs # 0 K/uL Sodium 141 (136-148) mmol/L Potassium 4.2 (3.5-5.1) mmol/L Chloride 105 (98-107) mmol/L Carbon Dioxide 25.1 (21.0-32.0) mmol/L BUN 12 (7.0-18.0) mg/dL Creatinine 0.7 L (0.8-1.3) mg/dL Est Cr Clr Drug Dosing 153.45 mL/min Estimated GFR (MDRD) > 60.0 ml/min Glucose 114 H (74-106) mg/dL Calcium 7.8 L (8.5-10.1) mg/dL Total Bilirubin 0.5 (0.2-1.0) mg/dL AST 59 H (15-37) IU/L ALT 60 (14-63) IU/L Alkaline Phosphatase 64 (46-116) U/L Total Protein 6.8 (6.4-8.2) g/dL Albumin 2.3 L (3.4-5.0) g/dL Globulin 4.5 H (2.6-4.0) g/dL Albumin/Globulin Ratio 0.5 L (0.9-1.6) Procalcitonin 0.19 H ng/mL Med Orders - Current: Current Medications Acetaminophen (Acetaminophen 325 Mg Tab) 650 mg PO Q4H PRN PRN Reason: Pain (Mild 1-3)/fever Albuterol/Ipratropium (Albuterol/Ipratropium 3.0-0.5 Mg/3 Ml Neb Soln) 3 ml NEB Q4HRRT PRN PRN Reason: Shortness Of Breath/wheezing Last Admin: 05/02/21 20:39 Dose: 3 ml Documented by: Albuterol/Ipratropium (Albuterol/Ipratropium 4 Gm Inhalation [place]) 0 gm INH Q4H [facility] Last Admin: 05/03/21 11:50 Dose: 1 puff Documented by: Dexamethasone (Dexamethasone 4 Mg Tab) 6 mg PO DAILY [facility] Last Admin: 05/03/21 08:58 Dose: 6 mg Documented by: Enoxaparin Sodium (Enoxaparin 100 Mg/1 Ml Syringe) 70 mg SUBCUT Q12H [facility] Last Admin: 05/03/21 09:00 Dose: 70 mg Documented by: Remdesivir 100 mg/ Sodium (Chloride) 100 mls @ 100 mls/hr IV Q24H [facility] Stop: 05/04/21 09:59 Last Admin: 05/03/21 09:57 Dose: 100 mls/hr Documented by: Pantoprazole Sodium 40 mg/ (Sodium Chloride) 10 mls @ 300 mls/hr IV DAILY [facility] Last Admin: 05/03/21 08:58 Dose: 300 mls/hr Documented by: Ondansetron HCl (Ondansetron 4 Mg/2 Ml Sdv) 4 mg IVPUSH Q4H PRN PRN Reason: Nausea/Vomiting Discontinued Medications Dexamethasone (Dexamethasone 4 Mg Tab) 6 mg PO DAILY [facility] Last Admin: 05/01/21 18:23 Dose: Not Given Documented by: Enoxaparin Sodium (Enoxaparin 40 Mg/0.4 Ml Syringe) 40 mg SUBCUT Q24H [facility] Last Admin: 05/01/21 18:29 Dose: Not Given Documented by: Pantoprazole Sodium 40 mg/ (Sodium Chloride) 10 mls @ 300 mls/hr IV Q24H [facility] Tocilizumab 800 mg/ Sodium (Chloride) 140 mls @ 140 mls/hr IV ONETIME ONE Stop: 05/01/21 19:32 Last Admin: 05/01/21 20:19 Dose: 140 mls/hr Documented by: - Exam Quality Assessment: Supplemental Oxygen General: Alert, Oriented, Cooperative, No Acute Distress HEENT: Pupils Equal, Pupils Reactive Neck: Supple, Trachea Midline Lungs: Decreased Breath Sounds, Crackles Cardiovascular: Regular Rate, Regular Rhythm GI/Abdominal Exam: Normal Bowel Sounds, Soft, Non-Tender Extremities: Normal Inspection, No Pedal Edema. No: Val's Sign, Leg Pain Peripheral Pulses: 2+: Dorsalis Pedis (L), Dorsalis Pedis (R) Skin: Warm, Dry, Intact Neurological: No New Focal Deficit Psy/Mental Status: Alert - Patient Data Lab Results Last 24 hrs: Laboratory Results - last 24 hr 05/02/21 05/03/21 05/03/21 Range/Units 06:01 06:18 06:18 WBC 11.50 H (4.0-11.0) K/uL RBC 4.84 (4.50-5.90) M/uL Hgb 13.4 (13.0-17.0) g/dL Hct 39.8 (38.0-50.0) % MCV 82.2 (80.0-98.0) fL MCH 27.7 (27.0-32.0) pg MCHC 33.7 (31.0-37.0) g/dL RDW Std Deviation 40.2 (28.0-62.0) fl RDW Coeff of Mirna 13 (11.0-15.0) % Plt Count 158 (150-400) K/uL MPV 10.80 (7.40-12.00) fL Add Manual Diff YES Neutrophils % (Manual) 81 H (48.0-80.0) % Band Neutrophils % 2 % Lymphocytes % (Manual) 17 (16.0-40.0) % Nucleated RBC % 0.0 /100WBC Absolute Seg Neuts 9.3 H (1.4-5.7) Band Neutrophils # 0.2 Lymphocytes # (Manual) 2.0 (0.6-2.4) Nucleated RBCs # 0 K/uL Sodium 141 (136-148) mmol/L Potassium 4.2 (3.5-5.1) mmol/L Chloride 105 (98-107) mmol/L Carbon Dioxide 25.1 (21.0-32.0) mmol/L BUN 12 (7.0-18.0) mg/dL Creatinine 0.7 L (0.8-1.3) mg/dL Est Cr Clr Drug Dosing 153.45 mL/min Estimated GFR (MDRD) > 60.0 ml/min Glucose 114 H (74-106) mg/dL Calcium 7.8 L (8.5-10.1) mg/dL Total Bilirubin 0.5 (0.2-1.0) mg/dL AST 59 H (15-37) IU/L ALT 60 (14-63) IU/L Alkaline Phosphatase 64 (46-116) U/L Total Protein 6.8 (6.4-8.2) g/dL Albumin 2.3 L (3.4-5.0) g/dL Globulin 4.5 H (2.6-4.0) g/dL Albumin/Globulin Ratio 0.5 L (0.9-1.6) Procalcitonin 0.19 H ng/mL Result Diagrams: 05/03/21 06:18 05/03/21 06:18 Sepsis Event Note - Evaluation Sepsis Screening Result: No Definite Risk - Focused Exam Vital Signs: Vital Signs Temp Resp BP Pulse Ox 05/03/21 11:00 26 H 131/63 94 L 05/03/21 10:00 27 H 125/65 93 L 05/03/21 09:00 17 120/54 L 91 L 05/03/21 08:00 98.2 F 19 118/65 88 L 05/03/21 07:00 25 H 125/60 92 L 05/03/21 06:00 19 115/69 93 L 05/03/21 05:00 35 H 115/68 94 L 05/03/21 04:00 98.1 F 38 H 134/70 95 05/03/21 03:00 27 H 130/71 93 L 05/03/21 02:00 32 H 125/68 96 05/03/21 01:00 98.2 F 18 113/49 L 93 L - Problem List & Annotations (1) COVID SNOMED Code(s): 840354621 Code(s): U07.1 - COVID-19 Status: Acute Current Visit: No (2) Pneumonia due to COVID-19 virus SNOMED Code(s): 047762610181976025 Code(s): U07.1 - COVID-19; J12.82 - PNEUMONIA DUE TO CORONAVIRUS DISEASE 2019 Status: Acute Current Visit: No - Problem List Review Problem List Initiated/Reviewed/Updated: Yes - My Orders Last 24 Hours: My Active Orders 05/02/21 13:57 C DIFFICILE AG/TOXIN W/REFLEX [RM] Routine 05/04/21 05:11 CBC WITH AUTO DIFF [HEME] DAILY COMPREHENSIVE METABOLIC PN,CMP [CHEM] DAILY 05/05/21 05:11 CBC WITH AUTO DIFF [HEME] DAILY COMPREHENSIVE METABOLIC PN,CMP [CHEM] DAILY 05/06/21 05:11 CBC WITH AUTO DIFF [HEME] DAILY COMPREHENSIVE METABOLIC PN,CMP [CHEM] DAILY 05/07/21 05:11 CBC WITH AUTO DIFF [HEME] DAILY COMPREHENSIVE METABOLIC PN,CMP [CHEM] DAILY 05/08/21 05:11 CBC WITH AUTO DIFF [HEME] DAILY COMPREHENSIVE METABOLIC PN,CMP [CHEM] DAILY 05/09/21 05:11 CBC WITH AUTO DIFF [HEME] DAILY COMPREHENSIVE METABOLIC PN,CMP [CHEM] DAILY 05/10/21 05:11 CBC WITH AUTO DIFF [HEME] DAILY COMPREHENSIVE METABOLIC PN,CMP [CHEM] DAILY 05/11/21 05:11 CBC WITH AUTO DIFF [HEME] DAILY COMPREHENSIVE METABOLIC PN,CMP [CHEM] DAILY - Plan Plan:: Covid pneumonia: -Oxygen supplementation. HHF 45L, FiO2 55. Wean as tolerated. -Remdesivir. -Lovenox anticoagulation 70mg bid. -Dexamethasone. -Duo nebs. Combivent. -Acetaminophen. Dextromethorphan/guaifenesin. Zofran. Pantoprazole. -Monitor telemetry. -Prone positioning. Incentive spirometry. -Spoke with patients Dad to update him.
[2021-05-04] MEDS: Albuterol/Ipratropium 4 GM Inhalation Spray INH SCH ×6 (03:02→22:22)
[2021-05-04] MEDS: Albuterol/Ipratropium 3.0-0.5 MG/3 ML Neb Soln NEB PRN (03:37)
[2021-05-04 05:06] LABS: BLOOD UREA NITROGEN,BUN 12 mg/dL (7.0-18.0); CARBON DIOXIDE,CO2 24.7 mmol/L (21.0-32.0); CHLORIDE,CL 105 mmol/L (98-107); GLUCOSE RANDOM 103 mg/dL (74-106); POTASSIUM,K 3.9 mmol/L (3.5-5.1); SODIUM,NA 141 mmol/L (136-148)
[2021-05-04] MEDS: Enoxaparin 40 MG/0.4 ML Syringe SUBCUT SCH ×2 (08:53→21:00)
[2021-05-04] MEDS: Pantoprazole 40 MG in Sodium Chloride 0.9% 10 ML IV SCH (08:53)
[2021-05-04] MEDS: Dexamethasone 4 MG Tab PO SCH (08:53)
--- NOTE | 2021-05-04 09:08 | PCM.PN ---
- General Info Date of Service: 05/04/21 Admission Dx/Problem (Free Text): Admission Diagnosis/Problem Admission Diagnosis/Problem Hypoxia Subjective Update: Patient seen at bedside this morning and states he feels he is improving. No episodes of diarrhea. Patient states he was prone for most of the day yesterday. Denies issues with appetite, and urination. Patient denies fever, chills, chest pain, palpitations, dizziness, abdominal pain or dysuria. Spoke with patient's father yesterday and provided update. - Review of Systems General: Denies: Fever, Chills HEENT: Denies: Headaches Pulmonary: Reports: Shortness of Breath. Denies: Pleuritic Chest Pain, Cough Cardiovascular: Reports: Dyspnea on Exertion. Denies: Chest Pain, Palpitations Gastrointestinal: Denies: Abdominal Pain, Constipation, Nausea, Vomiting Genitourinary: Denies: Dysuria Musculoskeletal: Denies: Leg Pain Skin: Denies: Rash Neurological: Denies: Confusion, Dizziness, Numbness, Paresthesia - Patient Data Vitals - Most Recent: Last Vital Signs Temp 97.7 F 05/04/21 04:00 Pulse Resp 19 05/04/21 07:00 BP 119/71 05/04/21 07:00 Pulse Ox 87 L 05/04/21 07:00 Weight - Most Recent: 262 lb I&O - Last 24 Hours: Intake & Output 05/03/21 05/04/21 05/04/21 22:59 06:59 14:59 Intake Total 980 1240 Output Total 1200 300 Balance -220 940 Lab Results Last 24 Hours: Laboratory Results - last 24 hr 05/03/21 05/04/21 05/04/21 Range/Units 06:18 04:30 04:30 WBC 10.65 (4.0-11.0) K/uL RBC 4.89 (4.50-5.90) M/uL Hgb 13.4 (13.0-17.0) g/dL Hct 40.3 (38.0-50.0) % MCV 82.4 (80.0-98.0) fL MCH 27.4 (27.0-32.0) pg MCHC 33.3 (31.0-37.0) g/dL RDW Std Deviation 40.0 (28.0-62.0) fl RDW Coeff of Mirna 13 (11.0-15.0) % Plt Count 156 (150-400) K/uL MPV 10.60 (7.40-12.00) fL Add Manual Diff YES Neutrophils % (Manual) 81 H 77 (48.0-80.0) % Band Neutrophils % 2 % Lymphocytes % (Manual) 17 19 (16.0-40.0) % Monocytes % (Manual) 3 (0.0-15.0) % Metamyelocytes % 1 % Nucleated RBC % 0.0 /100WBC Absolute Seg Neuts 9.3 H 8.2 H (1.4-5.7) Band Neutrophils # 0.2 Lymphocytes # (Manual) 2.0 2.0 (0.6-2.4) Monocytes # (Manual) 0.3 (0.0-0.8) Absolute Metamyelocyte 0.1 Nucleated RBCs # 0 K/uL Sodium 141 (136-148) mmol/L Potassium 3.9 (3.5-5.1) mmol/L Chloride 105 (98-107) mmol/L Carbon Dioxide 24.7 (21.0-32.0) mmol/L BUN 12 (7.0-18.0) mg/dL Creatinine 0.7 L (0.8-1.3) mg/dL Est Cr Clr Drug Dosing 153.45 mL/min Estimated GFR (MDRD) > 60.0 ml/min Glucose 103 (74-106) mg/dL Calcium 7.8 L (8.5-10.1) mg/dL Total Bilirubin 0.6 (0.2-1.0) mg/dL AST 102 H (15-37) IU/L ALT 123 H (14-63) IU/L Alkaline Phosphatase 64 (46-116) U/L Total Protein 7.0 (6.4-8.2) g/dL Albumin 2.4 L (3.4-5.0) g/dL Globulin 4.6 H (2.6-4.0) g/dL Albumin/Globulin Ratio 0.5 L (0.9-1.6) Med Orders - Current: Current Medications Acetaminophen (Acetaminophen 325 Mg Tab) 650 mg PO Q4H PRN PRN Reason: Pain (Mild 1-3)/fever Albuterol/Ipratropium (Albuterol/Ipratropium 3.0-0.5 Mg/3 Ml Neb Soln) 3 ml NEB Q4HRRT PRN PRN Reason: Shortness Of Breath/wheezing Last Admin: 05/04/21 03:37 Dose: 3 ml Documented by: Albuterol/Ipratropium (Albuterol/Ipratropium 4 Gm Inhalation [place]) 0 gm INH Q4H [facility] Last Admin: 05/04/21 06:01 Dose: 1 puff Documented by: Dexamethasone (Dexamethasone 4 Mg Tab) 6 mg PO DAILY [facility] Last Admin: 05/04/21 08:53 Dose: 6 mg Documented by: Enoxaparin Sodium (Enoxaparin 40 Mg/0.4 Ml Syringe) 40 mg SUBCUT Q12H [facility] Last Admin: 05/04/21 08:53 Dose: 40 mg Documented by: Remdesivir 100 mg/ Sodium (Chloride) 100 mls @ 100 mls/hr IV Q24H [facility] Stop: 05/04/21 09:59 Last Admin: 05/03/21 09:57 Dose: 100 mls/hr Documented by: Pantoprazole Sodium 40 mg/ (Sodium Chloride) 10 mls @ 300 mls/hr IV DAILY [facility] Last Admin: 05/04/21 08:53 Dose: 300 mls/hr Documented by: Ondansetron HCl (Ondansetron 4 Mg/2 Ml Sdv) 4 mg IVPUSH Q4H PRN PRN Reason: Nausea/Vomiting Discontinued Medications Dexamethasone (Dexamethasone 4 Mg Tab) 6 mg PO DAILY [facility] Last Admin: 05/01/21 18:23 Dose: Not Given Documented by: Enoxaparin Sodium (Enoxaparin 40 Mg/0.4 Ml Syringe) 40 mg SUBCUT Q24H [facility] Last Admin: 05/01/21 18:29 Dose: Not Given Documented by: Enoxaparin Sodium (Enoxaparin 100 Mg/1 Ml Syringe) 70 mg SUBCUT Q12H [facility] Last Admin: 05/03/21 21:00 Dose: 70 mg Documented by: Pantoprazole Sodium 40 mg/ (Sodium Chloride) 10 mls @ 300 mls/hr IV Q24H [facility] Tocilizumab 800 mg/ Sodium (Chloride) 140 mls @ 140 mls/hr IV ONETIME ONE Stop: 05/01/21 19:32 Last Admin: 05/01/21 20:19 Dose: 140 mls/hr Documented by: - Exam Quality Assessment: Supplemental Oxygen General: Alert, Oriented, Cooperative HEENT: Pupils Equal, Pupils Reactive Neck: Supple, Trachea Midline Lungs: Decreased Breath Sounds, Rales. No: Wheezing Cardiovascular: Regular Rate, Regular Rhythm GI/Abdominal Exam: Normal Bowel Sounds, Soft, Non-Tender Extremities: Normal Inspection, Normal Range of Motion, Non-Tender, No Pedal Edema. No: Val's Sign Peripheral Pulses: 2+: Dorsalis Pedis (L), Dorsalis Pedis (R) Skin: Warm, Dry, Intact Neurological: No New Focal Deficit - Patient Data Lab Results Last 24 hrs: Laboratory Results - last 24 hr 05/03/21 05/04/21 05/04/21 Range/Units 06:18 04:30 04:30 WBC 10.65 (4.0-11.0) K/uL RBC 4.89 (4.50-5.90) M/uL Hgb 13.4 (13.0-17.0) g/dL Hct 40.3 (38.0-50.0) % MCV 82.4 (80.0-98.0) fL MCH 27.4 (27.0-32.0) pg MCHC 33.3 (31.0-37.0) g/dL RDW Std Deviation 40.0 (28.0-62.0) fl RDW Coeff of Mirna 13 (11.0-15.0) % Plt Count 156 (150-400) K/uL MPV 10.60 (7.40-12.00) fL Add Manual Diff YES Neutrophils % (Manual) 81 H 77 (48.0-80.0) % Band Neutrophils % 2 % Lymphocytes % (Manual) 17 19 (16.0-40.0) % Monocytes % (Manual) 3 (0.0-15.0) % Metamyelocytes % 1 % Nucleated RBC % 0.0 /100WBC Absolute Seg Neuts 9.3 H 8.2 H (1.4-5.7) Band Neutrophils # 0.2 Lymphocytes # (Manual) 2.0 2.0 (0.6-2.4) Monocytes # (Manual) 0.3 (0.0-0.8) Absolute Metamyelocyte 0.1 Nucleated RBCs # 0 K/uL Sodium 141 (136-148) mmol/L Potassium 3.9 (3.5-5.1) mmol/L Chloride 105 (98-107) mmol/L Carbon Dioxide 24.7 (21.0-32.0) mmol/L BUN 12 (7.0-18.0) mg/dL Creatinine 0.7 L (0.8-1.3) mg/dL Est Cr Clr Drug Dosing 153.45 mL/min Estimated GFR (MDRD) > 60.0 ml/min Glucose 103 (74-106) mg/dL Calcium 7.8 L (8.5-10.1) mg/dL Total Bilirubin 0.6 (0.2-1.0) mg/dL AST 102 H (15-37) IU/L ALT 123 H (14-63) IU/L Alkaline Phosphatase 64 (46-116) U/L Total Protein 7.0 (6.4-8.2) g/dL Albumin 2.4 L (3.4-5.0) g/dL Globulin 4.6 H (2.6-4.0) g/dL Albumin/Globulin Ratio 0.5 L (0.9-1.6) Result Diagrams: 05/04/21 04:30 05/04/21 04:30 Sepsis Event Note - Evaluation Sepsis Screening Result: No Definite Risk - Focused Exam Vital Signs: Vital Signs Temp Resp BP Pulse Ox 05/04/21 07:00 19 119/71 87 L 05/04/21 06:00 37 H 110/71 93 L 05/04/21 05:00 16 101/64 91 L 05/04/21 04:00 97.7 F 29 H 111/52 L 93 L 05/04/21 03:00 23 H 129/64 90 L 05/04/21 02:00 13 120/82 93 L 05/04/21 01:00 16 121/67 93 L 05/04/21 00:00 97.9 F 21 H 129/73 91 L 05/03/21 23:00 17 128/71 97 05/03/21 22:00 18 133/70 91 L - Problem List & Annotations (1) COVID SNOMED Code(s): 854226769 Code(s): U07.1 - COVID-19 Status: Acute Current Visit: No (2) Pneumonia due to COVID-19 virus SNOMED Code(s): 624601866488220689 Code(s): U07.1 - COVID-19; J12.82 - PNEUMONIA DUE TO CORONAVIRUS DISEASE 2019 Status: Acute Current Visit: No - Problem List Review Problem List Initiated/Reviewed/Updated: Yes - My Orders Last 24 Hours: My Active Orders 05/04/21 09:00 Enoxaparin [Lovenox] 40 mg SUBCUT Q12H 05/05/21 05:11 CBC WITH AUTO DIFF [HEME] DAILY COMPREHENSIVE METABOLIC PN,CMP [CHEM] DAILY 05/06/21 05:11 CBC WITH AUTO DIFF [HEME] DAILY COMPREHENSIVE METABOLIC PN,CMP [CHEM] DAILY 05/07/21 05:11 CBC WITH AUTO DIFF [HEME] DAILY COMPREHENSIVE METABOLIC PN,CMP [CHEM] DAILY 05/08/21 05:11 CBC WITH AUTO DIFF [HEME] DAILY COMPREHENSIVE METABOLIC PN,CMP [CHEM] DAILY 05/09/21 05:11 CBC WITH AUTO DIFF [HEME] DAILY COMPREHENSIVE METABOLIC PN,CMP [CHEM] DAILY 05/10/21 05:11 CBC WITH AUTO DIFF [HEME] DAILY COMPREHENSIVE METABOLIC PN,CMP [CHEM] DAILY 05/11/21 05:11 CBC WITH AUTO DIFF [HEME] DAILY COMPREHENSIVE METABOLIC PN,CMP [CHEM] DAILY - Plan Plan:: Covid pneumonia: Patient is currently on 40 L high flow, FiO2 55. Final dose of remdesivir today. -Lovenox. -Dexamethasone. -Duo nebs. Combivent. -Acetaminophen. Dextromethorphan/guaifenesin. Zofran. Pantoprazole. -Monitor telemetry. -Prone positioning. Incentive spirometry. -Spoke with patients Dad and provided him with update.
[2021-05-04] MEDS: REMDESIVIR 100 MG in Sodium Chloride 0.9% 100 ML IV SCH (09:40)
[2021-05-05] MEDS: Albuterol/Ipratropium 4 GM Inhalation Spray INH SCH ×6 (02:28→23:34)
[2021-05-05 06:57] LABS: BLOOD UREA NITROGEN,BUN 14 mg/dL (7.0-18.0); CARBON DIOXIDE,CO2 25.8 mmol/L (21.0-32.0); CHLORIDE,CL 105 mmol/L (98-107); GLUCOSE RANDOM 106 mg/dL (74-106); POTASSIUM,K 4.6 mmol/L (3.5-5.1); SODIUM,NA 140 mmol/L (136-148)
[2021-05-05] MEDS: Enoxaparin 40 MG/0.4 ML Syringe SUBCUT SCH ×2 (08:55→20:00)
[2021-05-05] MEDS: Dexamethasone 4 MG Tab PO SCH (08:55)
[2021-05-05] MEDS: Pantoprazole 40 MG in Sodium Chloride 0.9% 10 ML IV SCH (08:55)
--- NOTE | 2021-05-05 12:06 | PN ---
THC Physician - Brief Progress [id number]/23/2021 12:05[facility] Misael Walters, [place] - MWN ([facility]LE[facility]) - MWN ICUJACQUES ALVAREZ, COVID+Date of Service 05/05/2021 12:05HPI /Events of Note eICU Progress [id number] admitted for respiratory failure attributed to COVID. History o btained from review of EMR.Camera exam: Sitting up in chair. Vitals monitor reviewed. eICU Recommenda tions:No new recommendations at this timeIsolation precautions per local policyDexamethasone 6mg ron y for 10 daysContinue oxygen supplementationAwake proning as toleratedSuggest targeting a neutral to negative net fluid balance as tolerated hemodynamicallyeICU will continue to follow and assist as amor ired.DVT and GI prophylaxis as appropriate.Thank you for allowing us to participate in the care of th is patient.The above note transcribed with the assistance of dictation software. Please excuse any er rors.Interventions Major-Respiratory failure - evaluation and management
--- NOTE | 2021-05-05 13:08 | PCM.PN ---
- General Info Date of Service: 05/05/21 Admission Dx/Problem (Free Text): Admission Diagnosis/Problem Admission Diagnosis/Problem Hypoxia Subjective Update: Patient seen this morning sitting in chair and states he feels he is improving. No diarrhea. Breathing is easier as per patient. Denies issues with appetite, and urination. Patient denies fever, chills, chest pain, palpitations, dizziness, abdominal pain or dysuria. Spoke with patient's father yesterday and provided update. - Review of Systems General: Denies: Fever, Chills HEENT: Denies: Headaches Pulmonary: Reports: Shortness of Breath, Cough Cardiovascular: Reports: Dyspnea on Exertion. Denies: Chest Pain, Palpitations Gastrointestinal: Denies: Abdominal Pain, Constipation, Diarrhea, Nausea, Vomiting Genitourinary: Denies: Dysuria Musculoskeletal: Denies: Leg Pain Skin: Denies: Rash Neurological: Denies: Confusion, Dizziness, Headache, Numbness, Paresthesia - Patient Data Vitals - Most Recent: Last Vital Signs Temp 97.6 F 05/05/21 12:00 Pulse 76 05/04/21 16:00 Resp 25 H 05/05/21 12:00 BP 96/56 L 05/05/21 12:00 Pulse Ox 91 L 05/05/21 12:00 Weight - Most Recent: 260 lb I&O - Last 24 Hours: Intake & Output 05/04/21 05/05/21 05/05/21 22:59 06:59 14:59 Intake Total 1800 1680 Output Total 1000 Balance 1800 680 Lab Results Last 24 Hours: Laboratory Results - last 24 hr 05/05/21 05/05/21 Range/Units 06:05 06:05 WBC 13.52 H (4.0-11.0) K/uL RBC 5.09 (4.50-5.90) M/uL Hgb 14.0 (13.0-17.0) g/dL Hct 42.4 (38.0-50.0) % MCV 83.3 (80.0-98.0) fL MCH 27.5 (27.0-32.0) pg MCHC 33.0 (31.0-37.0) g/dL RDW Std Deviation 40.1 (28.0-62.0) fl RDW Coeff of Mirna 13 (11.0-15.0) % Plt Count 177 (150-400) K/uL MPV 10.50 (7.40-12.00) fL Add Manual Diff YES Neutrophils % (Manual) 52 (48.0-80.0) % Band Neutrophils % 7 % Lymphocytes % (Manual) 32 (16.0-40.0) % Monocytes % (Manual) 2 (0.0-15.0) % Eosinophils % (Manual) 3 (0.0-7.0) % Metamyelocytes % 2 % Myelocytes % 2 % Nucleated RBC % 0.0 /100WBC Absolute Seg Neuts 7.0 H (1.4-5.7) Band Neutrophils # 0.9 Lymphocytes # (Manual) 4.3 H (0.6-2.4) Monocytes # (Manual) 0.3 (0.0-0.8) Eosinophils # (Manual) 0.4 (0.0-0.7) Absolute Metamyelocyte 0.3 Absolute Myelocytes 0.3 Nucleated RBCs # 0 K/uL Sodium 140 (136-148) mmol/L Potassium 4.6 (3.5-5.1) mmol/L Chloride 105 (98-107) mmol/L Carbon Dioxide 25.8 (21.0-32.0) mmol/L BUN 14 (7.0-18.0) mg/dL Creatinine 0.7 L (0.8-1.3) mg/dL Est Cr Clr Drug Dosing 153.45 mL/min Estimated GFR (MDRD) > 60.0 ml/min Glucose 106 (74-106) mg/dL Calcium 8.3 L (8.5-10.1) mg/dL Total Bilirubin 0.5 (0.2-1.0) mg/dL AST 75 H (15-37) IU/L ALT 149 H (14-63) IU/L Alkaline Phosphatase 60 (46-116) U/L Total Protein 7.5 (6.4-8.2) g/dL Albumin 2.4 L (3.4-5.0) g/dL Globulin 5.1 H (2.6-4.0) g/dL Albumin/Globulin Ratio 0.5 L (0.9-1.6) Med Orders - Current: Current Medications Acetaminophen (Acetaminophen 325 Mg Tab) 650 mg PO Q4H PRN PRN Reason: Pain (Mild 1-3)/fever Albuterol/Ipratropium (Albuterol/Ipratropium 3.0-0.5 Mg/3 Ml Neb Soln) 3 ml NEB Q4HRRT PRN PRN Reason: Shortness Of Breath/wheezing Last Admin: 05/04/21 03:37 Dose: 3 ml Documented by: Albuterol/Ipratropium (Albuterol/Ipratropium 4 Gm Inhalation [place]) 0 gm INH Q4H [facility] Last Admin: 05/05/21 11:10 Dose: 1 puff Documented by: Dexamethasone (Dexamethasone 4 Mg Tab) 6 mg PO DAILY [facility] Last Admin: 05/05/21 08:55 Dose: 6 mg Documented by: Enoxaparin Sodium (Enoxaparin 40 Mg/0.4 Ml Syringe) 40 mg SUBCUT Q12H [facility] Last Admin: 05/05/21 08:55 Dose: 40 mg Documented by: Pantoprazole Sodium 40 mg/ (Sodium Chloride) 10 mls @ 300 mls/hr IV DAILY [facility] Last Admin: 05/05/21 08:55 Dose: 300 mls/hr Documented by: Ondansetron HCl (Ondansetron 4 Mg/2 Ml Sdv) 4 mg IVPUSH Q4H PRN PRN Reason: Nausea/Vomiting Discontinued Medications Dexamethasone (Dexamethasone 4 Mg Tab) 6 mg PO DAILY [facility] Last Admin: 05/01/21 18:23 Dose: Not Given Documented by: Enoxaparin Sodium (Enoxaparin 40 Mg/0.4 Ml Syringe) 40 mg SUBCUT Q24H [facility] Last Admin: 05/01/21 18:29 Dose: Not Given Documented by: Enoxaparin Sodium (Enoxaparin 100 Mg/1 Ml Syringe) 70 mg SUBCUT Q12H [facility] Last Admin: 05/03/21 21:00 Dose: 70 mg Documented by: Remdesivir 100 mg/ Sodium (Chloride) 100 mls @ 100 mls/hr IV Q24H [facility] Stop: 05/04/21 09:59 Last Admin: 05/04/21 09:40 Dose: 100 mls/hr Documented by: Pantoprazole Sodium 40 mg/ (Sodium Chloride) 10 mls @ 300 mls/hr IV Q24H [facility] Tocilizumab 800 mg/ Sodium (Chloride) 140 mls @ 140 mls/hr IV ONETIME ONE Stop: 05/01/21 19:32 Last Admin: 05/01/21 20:19 Dose: 140 mls/hr Documented by: - Exam Quality Assessment: Supplemental Oxygen General: Alert, Oriented HEENT: Pupils Equal, Pupils Reactive Neck: Supple, Trachea Midline Lungs: Decreased Breath Sounds, Crackles Cardiovascular: Regular Rate, Regular Rhythm GI/Abdominal Exam: Normal Bowel Sounds, Soft, Non-Tender Extremities: Normal Inspection, Normal Range of Motion. No: Leg Pain Peripheral Pulses: 2+: Dorsalis Pedis (L), Dorsalis Pedis (R) Skin: Warm, Dry, Intact Neurological: No New Focal Deficit - Patient Data Lab Results Last 24 hrs: Laboratory Results - last 24 hr 05/05/21 05/05/21 Range/Units 06:05 06:05 WBC 13.52 H (4.0-11.0) K/uL RBC 5.09 (4.50-5.90) M/uL Hgb 14.0 (13.0-17.0) g/dL Hct 42.4 (38.0-50.0) % MCV 83.3 (80.0-98.0) fL MCH 27.5 (27.0-32.0) pg MCHC 33.0 (31.0-37.0) g/dL RDW Std Deviation 40.1 (28.0-62.0) fl RDW Coeff of Mirna 13 (11.0-15.0) % Plt Count 177 (150-400) K/uL MPV 10.50 (7.40-12.00) fL Add Manual Diff YES Neutrophils % (Manual) 52 (48.0-80.0) % Band Neutrophils % 7 % Lymphocytes % (Manual) 32 (16.0-40.0) % Monocytes % (Manual) 2 (0.0-15.0) % Eosinophils % (Manual) 3 (0.0-7.0) % Metamyelocytes % 2 % Myelocytes % 2 % Nucleated RBC % 0.0 /100WBC Absolute Seg Neuts 7.0 H (1.4-5.7) Band Neutrophils # 0.9 Lymphocytes # (Manual) 4.3 H (0.6-2.4) Monocytes # (Manual) 0.3 (0.0-0.8) Eosinophils # (Manual) 0.4 (0.0-0.7) Absolute Metamyelocyte 0.3 Absolute Myelocytes 0.3 Nucleated RBCs # 0 K/uL Sodium 140 (136-148) mmol/L Potassium 4.6 (3.5-5.1) mmol/L Chloride 105 (98-107) mmol/L Carbon Dioxide 25.8 (21.0-32.0) mmol/L BUN 14 (7.0-18.0) mg/dL Creatinine 0.7 L (0.8-1.3) mg/dL Est Cr Clr Drug Dosing 153.45 mL/min Estimated GFR (MDRD) > 60.0 ml/min Glucose 106 (74-106) mg/dL Calcium 8.3 L (8.5-10.1) mg/dL Total Bilirubin 0.5 (0.2-1.0) mg/dL AST 75 H (15-37) IU/L ALT 149 H (14-63) IU/L Alkaline Phosphatase 60 (46-116) U/L Total Protein 7.5 (6.4-8.2) g/dL Albumin 2.4 L (3.4-5.0) g/dL Globulin 5.1 H (2.6-4.0) g/dL Albumin/Globulin Ratio 0.5 L (0.9-1.6) Result Diagrams: 05/05/21 06:05 05/05/21 06:05 Sepsis Event Note - Evaluation Sepsis Screening Result: No Definite Risk - Focused Exam Vital Signs: Vital Signs Temp Resp BP Pulse Ox 05/05/21 12:00 97.6 F 25 H 96/56 L 91 L 05/05/21 11:00 22 H 89 L 05/05/21 10:00 18 103/54 L 91 L 05/05/21 09:00 16 100/48 L 91 L 05/05/21 08:00 97.8 F 20 98/54 L 92 L 05/05/21 07:00 19 123/74 92 L 05/05/21 06:00 18 89 L 05/05/21 05:00 23 H 127/64 94 L 05/05/21 04:00 97.7 F 17 127/64 93 L 05/05/21 03:00 14 124/55 L 93 L 05/05/21 02:00 19 124/56 L 90 L - Problem List & Annotations (1) COVID SNOMED Code(s): 052659050 Code(s): U07.1 - COVID-19 Status: Acute Current Visit: No (2) Pneumonia due to COVID-19 virus SNOMED Code(s): 734242261625506989 Code(s): U07.1 - COVID-19; J12.82 - PNEUMONIA DUE TO CORONAVIRUS DISEASE 2019 Status: Acute Current Visit: No - Problem List Review Problem List Initiated/Reviewed/Updated: Yes - My Orders Last 24 Hours: My Active Orders 05/05/21 08:52 [place] [RT Chest Physiotherapy] [RC] ASDIRECTED 05/06/21 05:11 CBC WITH AUTO DIFF [HEME] DAILY COMPREHENSIVE METABOLIC PN,CMP [CHEM] DAILY 05/07/21 05:11 CBC WITH AUTO DIFF [HEME] DAILY COMPREHENSIVE METABOLIC PN,CMP [CHEM] DAILY 05/08/21 05:11 CBC WITH AUTO DIFF [HEME] DAILY COMPREHENSIVE METABOLIC PN,CMP [CHEM] DAILY 05/09/21 05:11 CBC WITH AUTO DIFF [HEME] DAILY COMPREHENSIVE METABOLIC PN,CMP [CHEM] DAILY 05/10/21 05:11 CBC WITH AUTO DIFF [HEME] DAILY COMPREHENSIVE METABOLIC PN,CMP [CHEM] DAILY 05/11/21 05:11 CBC WITH AUTO DIFF [HEME] DAILY COMPREHENSIVE METABOLIC PN,CMP [CHEM] DAILY - Plan Plan:: Covid pneumonia: Patient is currently on 40 L high flow, FiO2 45. Remdesivir completed. -Lovenox. -Dexamethasone. -Duo nebs. Combivent. -Acetaminophen. Dextromethorphan/guaifenesin. Zofran. Pantoprazole. -Monitor telemetry. -Prone positioning. Incentive spirometry. Chest PT with [place] Vibratory PEP. -Spoke with patients Dad and provided him with update.
[2021-05-06] MEDS: Albuterol/Ipratropium 4 GM Inhalation Spray INH SCH ×6 (03:21→23:40)
[2021-05-06 07:15] LABS: BLOOD UREA NITROGEN,BUN 14 mg/dL (7.0-18.0); CARBON DIOXIDE,CO2 26.4 mmol/L (21.0-32.0); CHLORIDE,CL 104 mmol/L (98-107); GLUCOSE RANDOM 105 mg/dL (74-106); POTASSIUM,K 4.4 mmol/L (3.5-5.1); SODIUM,NA 139 mmol/L (136-148)
--- NOTE | 2021-05-06 07:38 | PCM.PN ---
- General Info Date of Service: 05/06/21 - Review of Systems Systems Review Comment:: feeling better, shortness of breath has been improving. - Patient Data Vitals - Most Recent: Last Vital Signs Temp 35.7 C L 05/06/21 03:00 Pulse 76 05/04/21 16:00 Resp 18 05/06/21 07:00 BP 103/49 L 05/06/21 07:00 Pulse Ox 96 05/06/21 07:00 Weight - Most Recent: 118.1 kg I&O - Last 24 Hours: Intake & Output 05/05/21 05/06/21 05/06/21 22:59 06:59 14:59 Intake Total 800 1300 Output Total 900 1000 Balance -100 300 Lab Results Last 24 Hours: Laboratory Results - last 24 hr 05/06/21 05/06/21 Range/Units 05:55 05:55 WBC 14.83 H (4.0-11.0) K/uL RBC 4.95 (4.50-5.90) M/uL Hgb 13.8 (13.0-17.0) g/dL Hct 41.1 (38.0-50.0) % MCV 83.0 (80.0-98.0) fL MCH 27.9 (27.0-32.0) pg MCHC 33.6 (31.0-37.0) g/dL RDW Std Deviation 40.0 (28.0-62.0) fl RDW Coeff of Mirna 13 (11.0-15.0) % Plt Count 204 (150-400) K/uL MPV 10.80 (7.40-12.00) fL Add Manual Diff YES Neutrophils % (Manual) 74 (48.0-80.0) % Band Neutrophils % 5 % Lymphocytes % (Manual) 14 L (16.0-40.0) % Monocytes % (Manual) 3 (0.0-15.0) % Metamyelocytes % 4 % Nucleated RBC % 0.0 /100WBC Absolute Seg Neuts 11.0 H (1.4-5.7) Band Neutrophils # 0.7 Lymphocytes # (Manual) 2.1 (0.6-2.4) Monocytes # (Manual) 0.4 (0.0-0.8) Absolute Metamyelocyte 0.6 Nucleated RBCs # 0 K/uL Sodium 139 (136-148) mmol/L Potassium 4.4 (3.5-5.1) mmol/L Chloride 104 (98-107) mmol/L Carbon Dioxide 26.4 (21.0-32.0) mmol/L BUN 14 (7.0-18.0) mg/dL Creatinine 0.7 L (0.8-1.3) mg/dL Est Cr Clr Drug Dosing 153.45 mL/min Estimated GFR (MDRD) > 60.0 ml/min Glucose 105 (74-106) mg/dL Calcium 8.3 L (8.5-10.1) mg/dL Total Bilirubin 0.5 (0.2-1.0) mg/dL AST 48 H (15-37) IU/L ALT 136 H (14-63) IU/L Alkaline Phosphatase 55 (46-116) U/L Total Protein 7.1 (6.4-8.2) g/dL Albumin 2.4 L (3.4-5.0) g/dL Globulin 4.7 H (2.6-4.0) g/dL Albumin/Globulin Ratio 0.5 L (0.9-1.6) Med Orders - Current: Current Medications Acetaminophen (Acetaminophen 325 Mg Tab) 650 mg PO Q4H PRN PRN Reason: Pain (Mild 1-3)/fever Albuterol/Ipratropium (Albuterol/Ipratropium 3.0-0.5 Mg/3 Ml Neb Soln) 3 ml NEB Q4HRRT PRN PRN Reason: Shortness Of Breath/wheezing Last Admin: 05/04/21 03:37 Dose: 3 ml Documented by: Albuterol/Ipratropium (Albuterol/Ipratropium 4 Gm Inhalation [place]) 0 gm INH Q4H [facility] Last Admin: 05/06/21 06:43 Dose: 1 puff Documented by: Dexamethasone (Dexamethasone 4 Mg Tab) 6 mg PO DAILY [facility] Last Admin: 05/05/21 08:55 Dose: 6 mg Documented by: Enoxaparin Sodium (Enoxaparin 40 Mg/0.4 Ml Syringe) 40 mg SUBCUT Q12H [facility] Last Admin: 05/05/21 20:00 Dose: 40 mg Documented by: Pantoprazole Sodium 40 mg/ (Sodium Chloride) 10 mls @ 300 mls/hr IV DAILY [facility] Last Admin: 05/05/21 08:55 Dose: 300 mls/hr Documented by: Ondansetron HCl (Ondansetron 4 Mg/2 Ml Sdv) 4 mg IVPUSH Q4H PRN PRN Reason: Nausea/Vomiting Discontinued Medications Dexamethasone (Dexamethasone 4 Mg Tab) 6 mg PO DAILY [facility] Last Admin: 05/01/21 18:23 Dose: Not Given Documented by: Enoxaparin Sodium (Enoxaparin 40 Mg/0.4 Ml Syringe) 40 mg SUBCUT Q24H [facility] Last Admin: 05/01/21 18:29 Dose: Not Given Documented by: Enoxaparin Sodium (Enoxaparin 100 Mg/1 Ml Syringe) 70 mg SUBCUT Q12H [facility] Last Admin: 05/03/21 21:00 Dose: 70 mg Documented by: Remdesivir 100 mg/ Sodium (Chloride) 100 mls @ 100 mls/hr IV Q24H [facility] Stop: 05/04/21 09:59 Last Admin: 05/04/21 09:40 Dose: 100 mls/hr Documented by: Pantoprazole Sodium 40 mg/ (Sodium Chloride) 10 mls @ 300 mls/hr IV Q24H [facility] Tocilizumab 800 mg/ Sodium (Chloride) 140 mls @ 140 mls/hr IV ONETIME ONE Stop: 05/01/21 19:32 Last Admin: 05/01/21 20:19 Dose: 140 mls/hr Documented by: - Exam General: Alert, Oriented Lungs: Normal Respiratory Effort, Rhonchi Cardiovascular: Regular Rate, Regular Rhythm GI/Abdominal Exam: Soft, Non-Tender, No Distention Extremities: Non-Tender, No Pedal Edema Skin: Warm, Dry, Intact Neurological: No New Focal Deficit - Patient Data Lab Results Last 24 hrs: Laboratory Results - last 24 hr 05/06/21 05/06/21 Range/Units 05:55 05:55 WBC 14.83 H (4.0-11.0) K/uL RBC 4.95 (4.50-5.90) M/uL Hgb 13.8 (13.0-17.0) g/dL Hct 41.1 (38.0-50.0) % MCV 83.0 (80.0-98.0) fL MCH 27.9 (27.0-32.0) pg MCHC 33.6 (31.0-37.0) g/dL RDW Std Deviation 40.0 (28.0-62.0) fl RDW Coeff of Mirna 13 (11.0-15.0) % Plt Count 204 (150-400) K/uL MPV 10.80 (7.40-12.00) fL Add Manual Diff YES Neutrophils % (Manual) 74 (48.0-80.0) % Band Neutrophils % 5 % Lymphocytes % (Manual) 14 L (16.0-40.0) % Monocytes % (Manual) 3 (0.0-15.0) % Metamyelocytes % 4 % Nucleated RBC % 0.0 /100WBC Absolute Seg Neuts 11.0 H (1.4-5.7) Band Neutrophils # 0.7 Lymphocytes # (Manual) 2.1 (0.6-2.4) Monocytes # (Manual) 0.4 (0.0-0.8) Absolute Metamyelocyte 0.6 Nucleated RBCs # 0 K/uL Sodium 139 (136-148) mmol/L Potassium 4.4 (3.5-5.1) mmol/L Chloride 104 (98-107) mmol/L Carbon Dioxide 26.4 (21.0-32.0) mmol/L BUN 14 (7.0-18.0) mg/dL Creatinine 0.7 L (0.8-1.3) mg/dL Est Cr Clr Drug Dosing 153.45 mL/min Estimated GFR (MDRD) > 60.0 ml/min Glucose 105 (74-106) mg/dL Calcium 8.3 L (8.5-10.1) mg/dL Total Bilirubin 0.5 (0.2-1.0) mg/dL AST 48 H (15-37) IU/L ALT 136 H (14-63) IU/L Alkaline Phosphatase 55 (46-116) U/L Total Protein 7.1 (6.4-8.2) g/dL Albumin 2.4 L (3.4-5.0) g/dL Globulin 4.7 H (2.6-4.0) g/dL Albumin/Globulin Ratio 0.5 L (0.9-1.6) Result Diagrams: 05/06/21 05:55 05/06/21 05:55 Sepsis Event Note - Evaluation Sepsis Screening Result: Sepsis Risk - Focused Exam Vital Signs: Vital Signs Temp Resp BP Pulse Ox 05/06/21 07:00 18 103/49 L 96 05/06/21 06:00 12 98/41 L 92 L 05/06/21 05:00 27 H 131/61 92 L 05/06/21 04:00 21 H 125/72 95 05/06/21 03:00 35.7 C L 21 H 135/67 91 L 05/06/21 02:00 27 H 120/60 95 05/06/21 01:00 18 97/59 L 93 L 05/06/21 00:00 20 97/46 L 95 05/05/21 23:00 35.7 C L 35 H 117/45 L 90 L 05/05/21 22:00 36 H 94 L 05/05/21 21:00 35 H 95 05/05/21 20:00 36.4 C 18 105/49 L 94 L - Problem List & Annotations (1) COVID SNOMED Code(s): 519573968 Code(s): U07.1 - COVID-19 Status: Acute Current Visit: No (2) Hypoxia SNOMED Code(s): 058894517 Code(s): R09.02 - HYPOXEMIA Status: Acute Current Visit: No - Problem List Review Problem List Initiated/Reviewed/Updated: Yes - Plan Plan:: 21 yo male admitted for COVID pneumonia with acute hypoxic respiratory failure Hypoxia: on 35 L high flow, FiO2 40. COVID: continue dexamethson, Remdesivir completed. lovenox for DVT prophylaxis
[2021-05-06] MEDS: Dexamethasone 4 MG Tab PO SCH (07:59)
[2021-05-06] MEDS: Pantoprazole 40 MG in Sodium Chloride 0.9% 10 ML IV SCH (08:00)
[2021-05-06] MEDS: Enoxaparin 40 MG/0.4 ML Syringe SUBCUT SCH ×2 (08:00→20:10)
[2021-05-07] MEDS: Albuterol/Ipratropium 4 GM Inhalation Spray INH SCH ×6 (03:30→22:59)
[2021-05-07 06:58] LABS: BLOOD UREA NITROGEN,BUN 15 mg/dL (7.0-18.0); CARBON DIOXIDE,CO2 27.2 mmol/L (21.0-32.0); CHLORIDE,CL 103 mmol/L (98-107); GLUCOSE RANDOM 98 mg/dL (74-106); POTASSIUM,K 4.5 mmol/L (3.5-5.1); SODIUM,NA 139 mmol/L (136-148)
--- NOTE | 2021-05-07 07:35 | PCM.PN ---
- General Info Date of Service: 05/07/21 Admission Dx/Problem (Free Text): Admission Diagnosis/Problem Admission Diagnosis/Problem Hypoxia Subjective Update: Patient was downgraded yesterday from ICU. Patient seen at bedside this morning and states he is very happy with his clinical improvement. Patient's diarrhea has resolved. He had one regular bowel movement this morning. Patient is now down to 6 L high flow nasal cannula. Denies issues with appetite, and urination. Patient denies fever, chills, chest pain, palpitations, dizziness, abdominal pain or dysuria. - Review of Systems General: Denies: Fever, Chills HEENT: Denies: Headaches, Sore Throat Pulmonary: Reports: Shortness of Breath, Cough. Denies: Pleuritic Chest Pain, Sputum Cardiovascular: Reports: Dyspnea on Exertion. Denies: Chest Pain, Palpitations Gastrointestinal: Denies: Abdominal Pain, Diarrhea, Nausea, Vomiting Genitourinary: Denies: Dysuria Musculoskeletal: Denies: Leg Pain Skin: Denies: Cyanosis Neurological: Denies: Confusion, Dizziness, Headache, Numbness, Paresthesia - Patient Data Vitals - Most Recent: Last Vital Signs Temp 97.6 F 05/07/21 03:56 Pulse 62 05/07/21 03:56 Resp 16 05/07/21 03:56 BP 102/47 L 05/07/21 03:56 Pulse Ox 93 L 05/07/21 03:56 Weight - Most Recent: 260 lb 5.855 oz I&O - Last 24 Hours: Intake & Output 05/06/21 05/07/21 05/07/21 22:59 06:59 14:59 Intake Total 1400 1200 Output Total 900 Balance 1400 300 Lab Results Last 24 Hours: Laboratory Results - last 24 hr 05/07/21 05/07/21 Range/Units 06:00 06:00 WBC 16.71 H (4.0-11.0) K/uL RBC 4.99 (4.50-5.90) M/uL Hgb 13.6 (13.0-17.0) g/dL Hct 41.5 (38.0-50.0) % MCV 83.2 (80.0-98.0) fL MCH 27.3 (27.0-32.0) pg MCHC 32.8 (31.0-37.0) g/dL RDW Std Deviation 40.0 (28.0-62.0) fl RDW Coeff of Mirna 13 (11.0-15.0) % Plt Count 227 (150-400) K/uL MPV 11.00 (7.40-12.00) fL Add Manual Diff YES Neutrophils % (Manual) 71 (48.0-80.0) % Band Neutrophils % 1 % Lymphocytes % (Manual) 22 (16.0-40.0) % Monocytes % (Manual) 3 (0.0-15.0) % Metamyelocytes % 3 % Nucleated RBC % 0.0 /100WBC Absolute Seg Neuts 11.9 H (1.4-5.7) Band Neutrophils # 0.2 Lymphocytes # (Manual) 3.7 H (0.6-2.4) Monocytes # (Manual) 0.5 (0.0-0.8) Absolute Metamyelocyte 0.5 Nucleated RBCs # 0 K/uL Sodium 139 (136-148) mmol/L Potassium 4.5 (3.5-5.1) mmol/L Chloride 103 (98-107) mmol/L Carbon Dioxide 27.2 (21.0-32.0) mmol/L BUN 15 (7.0-18.0) mg/dL Creatinine 0.6 L (0.8-1.3) mg/dL Est Cr Clr Drug Dosing 179.02 mL/min Estimated GFR (MDRD) > 60.0 ml/min Glucose 98 (74-106) mg/dL Calcium 8.3 L (8.5-10.1) mg/dL Total Bilirubin 0.6 (0.2-1.0) mg/dL AST 42 H (15-37) IU/L ALT 131 H (14-63) IU/L Alkaline Phosphatase 56 (46-116) U/L Total Protein 7.3 (6.4-8.2) g/dL Albumin 2.4 L (3.4-5.0) g/dL Globulin 4.9 H (2.6-4.0) g/dL Albumin/Globulin Ratio 0.5 L (0.9-1.6) Med Orders - Current: Current Medications Acetaminophen (Acetaminophen 325 Mg Tab) 650 mg PO Q4H PRN PRN Reason: Pain (Mild 1-3)/fever Albuterol/Ipratropium (Albuterol/Ipratropium 3.0-0.5 Mg/3 Ml Neb Soln) 3 ml NEB Q4HRRT PRN PRN Reason: Shortness Of Breath/wheezing Last Admin: 05/04/21 03:37 Dose: 3 ml Documented by: Albuterol/Ipratropium (Albuterol/Ipratropium 4 Gm Inhalation [place]) 0 gm INH Q4H [facility] Last Admin: 05/07/21 06:08 Dose: 1 puff Documented by: Dexamethasone (Dexamethasone 4 Mg Tab) 6 mg PO DAILY [facility] Last Admin: 05/06/21 07:59 Dose: 6 mg Documented by: Enoxaparin Sodium (Enoxaparin 40 Mg/0.4 Ml Syringe) 40 mg SUBCUT Q12H [facility] Last Admin: 05/06/21 20:10 Dose: 40 mg Documented by: Pantoprazole Sodium 40 mg/ (Sodium Chloride) 10 mls @ 300 mls/hr IV DAILY [facility] Last Admin: 05/06/21 08:00 Dose: 300 mls/hr Documented by: Ondansetron HCl (Ondansetron 4 Mg/2 Ml Sdv) 4 mg IVPUSH Q4H PRN PRN Reason: Nausea/Vomiting Discontinued Medications Dexamethasone (Dexamethasone 4 Mg Tab) 6 mg PO DAILY [facility] Last Admin: 05/01/21 18:23 Dose: Not Given Documented by: Enoxaparin Sodium (Enoxaparin 40 Mg/0.4 Ml Syringe) 40 mg SUBCUT Q24H [facility] Last Admin: 05/01/21 18:29 Dose: Not Given Documented by: Enoxaparin Sodium (Enoxaparin 100 Mg/1 Ml Syringe) 70 mg SUBCUT Q12H [facility] Last Admin: 05/03/21 21:00 Dose: 70 mg Documented by: Remdesivir 100 mg/ Sodium (Chloride) 100 mls @ 100 mls/hr IV Q24H [facility] Stop: 05/04/21 09:59 Last Admin: 05/04/21 09:40 Dose: 100 mls/hr Documented by: Pantoprazole Sodium 40 mg/ (Sodium Chloride) 10 mls @ 300 mls/hr IV Q24H [facility] Tocilizumab 800 mg/ Sodium (Chloride) 140 mls @ 140 mls/hr IV ONETIME ONE Stop: 10/19/21 19:32 Last Admin: 05/01/21 20:19 Dose: 140 mls/hr Documented by: - Exam Quality Assessment: Supplemental Oxygen General: Alert, Oriented, Cooperative, No Acute Distress HEENT: Pupils Equal, Pupils Reactive Neck: Supple, Trachea Midline Lungs: Normal Respiratory Effort, Decreased Breath Sounds Cardiovascular: Regular Rate, Regular Rhythm GI/Abdominal Exam: Normal Bowel Sounds, Soft, Non-Tender, No Organomegaly Extremities: Normal Inspection, Normal Range of Motion, Non-Tender, No Pedal Edema. No: Val's Sign Peripheral Pulses: 2+: Dorsalis Pedis (L), Dorsalis Pedis (R) Skin: Warm, Dry, Intact Neurological: No New Focal Deficit - Patient Data Lab Results Last 24 hrs: Laboratory Results - last 24 hr 05/07/21 05/07/21 Range/Units 06:00 06:00 WBC 16.71 H (4.0-11.0) K/uL RBC 4.99 (4.50-5.90) M/uL Hgb 13.6 (13.0-17.0) g/dL Hct 41.5 (38.0-50.0) % MCV 83.2 (80.0-98.0) fL MCH 27.3 (27.0-32.0) pg MCHC 32.8 (31.0-37.0) g/dL RDW Std Deviation 40.0 (28.0-62.0) fl RDW Coeff of Mirna 13 (11.0-15.0) % Plt Count 227 (150-400) K/uL MPV 11.00 (7.40-12.00) fL Add Manual Diff YES Neutrophils % (Manual) 71 (48.0-80.0) % Band Neutrophils % 1 % Lymphocytes % (Manual) 22 (16.0-40.0) % Monocytes % (Manual) 3 (0.0-15.0) % Metamyelocytes % 3 % Nucleated RBC % 0.0 /100WBC Absolute Seg Neuts 11.9 H (1.4-5.7) Band Neutrophils # 0.2 Lymphocytes # (Manual) 3.7 H (0.6-2.4) Monocytes # (Manual) 0.5 (0.0-0.8) Absolute Metamyelocyte 0.5 Nucleated RBCs # 0 K/uL Sodium 139 (136-148) mmol/L Potassium 4.5 (3.5-5.1) mmol/L Chloride 103 (98-107) mmol/L Carbon Dioxide 27.2 (21.0-32.0) mmol/L BUN 15 (7.0-18.0) mg/dL Creatinine 0.6 L (0.8-1.3) mg/dL Est Cr Clr Drug Dosing 179.02 mL/min Estimated GFR (MDRD) > 60.0 ml/min Glucose 98 (74-106) mg/dL Calcium 8.3 L (8.5-10.1) mg/dL Total Bilirubin 0.6 (0.2-1.0) mg/dL AST 42 H (15-37) IU/L ALT 131 H (14-63) IU/L Alkaline Phosphatase 56 (46-116) U/L Total Protein 7.3 (6.4-8.2) g/dL Albumin 2.4 L (3.4-5.0) g/dL Globulin 4.9 H (2.6-4.0) g/dL Albumin/Globulin Ratio 0.5 L (0.9-1.6) Result Diagrams: 05/07/21 06:00 05/07/21 06:00 Sepsis Event Note - Evaluation Sepsis Screening Result: No Definite Risk - Focused Exam Vital Signs: Vital Signs Temp Pulse Resp BP Pulse Ox 05/07/21 03:56 97.6 F 62 16 102/47 L 93 L 05/06/21 20:00 97.6 F 17 119/56 L 92 L - Problem List & Annotations (1) COVID SNOMED Code(s): 740804031 Code(s): U07.1 - COVID-19 Status: Acute Current Visit: No (2) Pneumonia due to COVID-19 virus SNOMED Code(s): 681520719879096889 Code(s): U07.1 - COVID-19; J12.82 - PNEUMONIA DUE TO CORONAVIRUS DISEASE 2019 Status: Acute Current Visit: No - Problem List Review Problem List Initiated/Reviewed/Updated: Yes - My Orders Last 24 Hours: My Active Orders 05/08/21 05:11 CBC WITH AUTO DIFF [HEME] DAILY COMPREHENSIVE METABOLIC PN,CMP [CHEM] DAILY 05/09/21 05:11 CBC WITH AUTO DIFF [HEME] DAILY COMPREHENSIVE METABOLIC PN,CMP [CHEM] DAILY 05/10/21 05:11 CBC WITH AUTO DIFF [HEME] DAILY COMPREHENSIVE METABOLIC PN,CMP [CHEM] DAILY 05/11/21 05:11 CBC WITH AUTO DIFF [HEME] DAILY COMPREHENSIVE METABOLIC PN,CMP [CHEM] DAILY - Plan Plan:: 21 yo male admitted for COVID pneumonia with acute hypoxic respiratory failure Patient is currently on 6 L high flow nasal cannula. Wean oxygen as tolerated. COVID: continue dexamethasone, Remdesivir completed. Lovenox for DVT prophylaxis. Duo nebs. Combivent. Acetaminophen. Dextromethorphan/guaifenesin. Zofran. Pantoprazole. We will update patient's parents today.
[2021-05-07] MEDS: Dexamethasone 4 MG Tab PO SCH (09:12)
[2021-05-07] MEDS: Pantoprazole 40 MG in Sodium Chloride 0.9% 10 ML IV SCH (09:12)
[2021-05-07] MEDS: Enoxaparin 40 MG/0.4 ML Syringe SUBCUT SCH ×2 (09:13→20:11)
[2021-05-08] MEDS: Albuterol/Ipratropium 4 GM Inhalation Spray INH SCH ×3 (03:33→11:30)
[2021-05-08 07:55] LABS: BLOOD UREA NITROGEN,BUN 15 mg/dL (7.0-18.0); CARBON DIOXIDE,CO2 30.4 mmol/L (21.0-32.0); CHLORIDE,CL 103 mmol/L (98-107); GLUCOSE RANDOM 94 mg/dL (74-106); POTASSIUM,K 4.2 mmol/L (3.5-5.1); SODIUM,NA 141 mmol/L (136-148)
[2021-05-08] MEDS: Dexamethasone 4 MG Tab PO SCH (08:11)
[2021-05-08] MEDS: Pantoprazole 40 MG in Sodium Chloride 0.9% 10 ML IV SCH (08:12)
[2021-05-08] MEDS: Enoxaparin 40 MG/0.4 ML Syringe SUBCUT SCH (08:20)
--- NOTE | 2021-05-08 11:39 | PCM.DCSUM1 ---
Discharge Summary - Hospital Course Diagnosis: Stroke: No - Discharge Data Discharge Disposition: Home, Self-Care 01 Condition: Good - Referral to Home Health Primary Care Physician: Pritesh Hyatt MD - Discharge Plan *PRESCRIPTION DRUG MONITORING PROGRAM REVIEWED*: No *COPY OF PRESCRIPTION DRUG MONITORING REPORT IN PATIENT RICHA: No Prescriptions/Med Rec: Aspirin [Adult Aspirin Regimen] 81 mg PO DAILY #20 tablet. dexAMETHasone [Dexamethasone] 6 mg PO DAILY #3 tablet Pantoprazole 20 mg PO ACBREAKFAST #20 tab. Home Medications: Home Meds Albuterol/Ipratropium [Combivent Respimat] 1 puff INH Q4H inhaler 05/08/21 [Rx] Aspirin [Adult Aspirin Regimen] 81 mg PO DAILY #20 tablet. 05/08/21 [Rx] Pantoprazole 20 mg PO ACBREAKFAST #20 tab. 05/08/21 [Rx] dexAMETHasone [Dexamethasone] 6 mg PO DAILY #3 tablet 05/08/21 [Rx] Patient Handouts: Hypoxia, Upper Respiratory Infection, Pediatric, [id number], COVID-19 Vaccine Information, What You Should Know About COVID-19 to Protect Yourself and Others - CDC, Frequently Asked Questions About COVID-19 Vaccination - CDC (12/26/2020) Referrals: Lemuel Carey MD [Resident] - 05/28/21 2:30 pm - Patient Data Vitals - Most Recent: Last Vital Signs Temp 35.9 C L 05/08/21 11:38 Pulse 89 05/08/21 11:38 Resp 22 H 05/08/21 11:38 BP 119/67 05/08/21 11:38 Pulse Ox 91 L 05/08/21 11:38 Weight - Most Recent: 118.1 kg I&O - Last 24 hours: Intake & Output 05/07/21 05/08/21 05/08/21 22:59 06:59 14:59 Intake Total 1202 500 Output Total 2665 0 Balance -1463 500 Lab Results - Last 24 hrs: Laboratory Results - last 24 hr 05/08/21 05/08/21 Range/Units 06:17 06:17 WBC 14.19 H (4.0-11.0) K/uL RBC 5.26 (4.50-5.90) M/uL Hgb 14.6 (13.0-17.0) g/dL Hct 44.4 (38.0-50.0) % MCV 84.4 (80.0-98.0) fL MCH 27.8 (27.0-32.0) pg MCHC 32.9 (31.0-37.0) g/dL RDW Std Deviation 40.8 (28.0-62.0) fl RDW Coeff of Mirna 14 (11.0-15.0) % Plt Count 259 (150-400) K/uL MPV 10.60 (7.40-12.00) fL Add Manual Diff YES Neutrophils % (Manual) 78 (48.0-80.0) % Band Neutrophils % 1 % Lymphocytes % (Manual) 19 (16.0-40.0) % Monocytes % (Manual) 2 (0.0-15.0) % Nucleated RBC % 0.0 /100WBC Absolute Seg Neuts 11.1 H (1.4-5.7) Band Neutrophils # 0.1 Lymphocytes # (Manual) 2.7 H (0.6-2.4) Monocytes # (Manual) 0.3 (0.0-0.8) Nucleated RBCs # 0 K/uL Sodium 141 (136-148) mmol/L Potassium 4.2 (3.5-5.1) mmol/L Chloride 103 (98-107) mmol/L Carbon Dioxide 30.4 (21.0-32.0) mmol/L BUN 15 (7.0-18.0) mg/dL Creatinine 0.8 (0.8-1.3) mg/dL Est Cr Clr Drug Dosing 134.27 mL/min Estimated GFR (MDRD) > 60.0 ml/min Glucose 94 (74-106) mg/dL Calcium 8.5 (8.5-10.1) mg/dL Total Bilirubin 0.6 (0.2-1.0) mg/dL AST 37 (15-37) IU/L ALT 147 H (14-63) IU/L Alkaline Phosphatase 61 (46-116) U/L Total Protein 7.9 (6.4-8.2) g/dL Albumin 2.7 L (3.4-5.0) g/dL Globulin 5.2 H (2.6-4.0) g/dL Albumin/Globulin Ratio 0.5 L (0.9-1.6) Med Orders - Current: Current Medications Acetaminophen (Acetaminophen 325 Mg Tab) 650 mg PO Q4H PRN PRN Reason: Pain (Mild 1-3)/fever Albuterol/Ipratropium (Albuterol/Ipratropium 3.0-0.5 Mg/3 Ml Neb Soln) 3 ml NEB Q4HRRT PRN PRN Reason: Shortness Of Breath/wheezing Last Admin: 05/04/21 03:37 Dose: 3 ml Documented by: Albuterol/Ipratropium (Albuterol/Ipratropium 4 Gm Inhalation [place]) 0 gm INH Q4H [facility] Last Admin: 05/08/21 11:30 Dose: 1 puff Documented by: Dexamethasone (Dexamethasone 4 Mg Tab) 6 mg PO DAILY [facility] Last Admin: 05/08/21 08:11 Dose: 6 mg Documented by: Enoxaparin Sodium (Enoxaparin 40 Mg/0.4 Ml Syringe) 40 mg SUBCUT Q12H [facility] Last Admin: 05/08/21 08:20 Dose: 40 mg Documented by: Pantoprazole Sodium 40 mg/ (Sodium Chloride) 10 mls @ 300 mls/hr IV DAILY [facility] Last Admin: 05/08/21 08:12 Dose: 300 mls/hr Documented by: Ondansetron HCl (Ondansetron 4 Mg/2 Ml Sdv) 4 mg IVPUSH Q4H PRN PRN Reason: Nausea/Vomiting Discontinued Medications Dexamethasone (Dexamethasone 4 Mg Tab) 6 mg PO DAILY [facility] Last Admin: 05/01/21 18:23 Dose: Not Given Documented by: Enoxaparin Sodium (Enoxaparin 40 Mg/0.4 Ml Syringe) 40 mg SUBCUT Q24H [facility] Last Admin: 05/01/21 18:29 Dose: Not Given Documented by: Enoxaparin Sodium (Enoxaparin 100 Mg/1 Ml Syringe) 70 mg SUBCUT Q12H [facility] Last Admin: 05/03/21 21:00 Dose: 70 mg Documented by: Remdesivir 100 mg/ Sodium (Chloride) 100 mls @ 100 mls/hr IV Q24H [facility] Stop: 05/04/21 09:59 Last Admin: 05/04/21 09:40 Dose: 100 mls/hr Documented by: Pantoprazole Sodium 40 mg/ (Sodium Chloride) 10 mls @ 300 mls/hr IV Q24H [facility] Tocilizumab 800 mg/ Sodium (Chloride) 140 mls @ 140 mls/hr IV ONETIME ONE Stop: 05/01/21 19:32 Last Admin: 05/01/21 20:19 Dose: 140 mls/hr Documented by:
== END 2021-05-08 15:20 | disposition home or self-care (01) | DRG 137 ==
LOC: MW.ICU 14:19 → MW.MS 05-06 19:54
PROVIDERS: ADMIT Student in an Organized Health Care Education/Training Program; ATTEND Student in an Organized Health Care Education/Training Program
PROC: XW033H5 Introduction of Tocilizumab into Peripheral Vein, Percutaneous Approach, New Technology Group 5 (ICD-10-PCS; principal; 2021-05-01)
PROC: XW033E5 Introduction of Remdesivir Anti-infective into Peripheral Vein, Percutaneous Approach, New Technology Group 5 (ICD-10-PCS; 2021-05-02)
PROC: 3E0DX3Z Introduction of Anti-inflammatory into Mouth and Pharynx, External Approach (ICD-10-PCS; 2021-05-02)
PROC: 5A0955A Assistance with Respiratory Ventilation, Greater than 96 Consecutive Hours, High Flow/Velocity Cannula (ICD-10-PCS; 2021-05-02)
DX: U07.1 COVID-19 (principal); J12.82 Pneumonia due to coronavirus disease 2019; J96.01 Acute respiratory failure with hypoxia; H54.7 Unspecified visual loss; Z91.018 Allergy to other foods
CPT/HCPCS: 36415; 80053; 84145; 85025; 94640; A9270-GY; C9113; J1650; J7620-GY; J8540; Q0249